=== PATIENT | male | born 1955 | race African-American/Black ===

== ENCOUNTER 2018-03-16 15:16 | Inpatient (IN) | payer OTHER ==
--- NOTE | 2018-03-16 16:08 | RAD REPORT ---
EXAM DESCRIPTION: CT - Head Brain Wo Cont - 03/16/2018 4:00 pm CLINICAL HISTORY: Declining state;Confused Drowsiness COMPARISON: No comparisons TECHNIQUE: All CT scans are performed using dose optimization technique as appropriate and may inclu de automated exposure control or mA/KV adjustment according to patient size. FINDINGS: No intracranial hemorrhage, hydrocephalus or extra-axial fluid collection.17 x 13 mm area of diminished density is present in the right basal ganglia, most compatible with subacute nonhemorrh agic CVA. No midline shift is seen. Chronic opacification of the right maxillary antrum is seen suggesting chronic sinusitis. The paranas al sinuses and mastoids are otherwise clear. The calvarium is intact. IMPRESSION: 17 x 13 mm subacute nonhemorrhagic infarct is noted in the right basal ganglia. No midli ne shift or other acute process identified.
--- NOTE | 2018-03-16 16:25 | RAD REPORT ---
EXAM DESCRIPTION: RAD - Chest Single View - 03/16/2018 4:19 pm CLINICAL HISTORY: COUGH Chest pain. COMPARISON: CHEST PA AND LAT 2 VIEW dated 10/04/2009 FINDINGS: Portable technique limits examination quality. The lungs are grossly clear. The heart is normal in size. No displaced fractures. IMPRESSION: No acute intrathoracic process suspected.
[2018-03-16 16:36] LABS: Urine Appearance CLEAR; Urine Bilirubin NEGATIVE (NEG); Urine Blood 2+ (NEG); Urine Color YELLOW; Urine Glucose NEGATIVE (NEG); Urine Protein NEGATIVE (NEG); Urine Specific Gravity 1.025 (1.005-1.030)
[2018-03-16 16:43] LABS: Barbiturates NEGATIVE (NEGATIVE); Benzodiazepines NEGATIVE (NEGATIVE); Cocaine NEGATIVE (NEGATIVE); METHAMPHETAM NEGATIVE (NEGATIVE); Methadone NEGATIVE (NEGATIVE); Opiates NEGATIVE (NEGATIVE); Phencyclidine NEGATIVE (NEGATIVE); Protime INR 1.22; THC Cannibis NEGATIVE (NEGATIVE)
[2018-03-16 16:46] LABS: Urine Microscopic Reflex ORDER UMIC
[2018-03-16] MEDS ORDERED: NA CHLORIDE 0.9% 1,000 ML ONE (16:46)
[2018-03-16 16:57] LABS: Urine Bacteria <20 /HPF (NONE SEEN); Urine RBC 20-50 /HPF (NONE SEEN)
[2018-03-16 16:58] LABS: Urine Culture Reflex Order NOT NEEDED; Urine Mucus 1+ /HPF (NONE SEEN)
[2018-03-16 16:59] LABS: Absolute Lymphocytes (CBC) 2.1 K/uL (0.7-4.9); Absolute Monocytes 0.9 K/uL (0.1-1.3); Absolute Neutrophil 5.8 K/uL (1.8-8.0); Basophils % 0.7 % (0-1.3); Eosinophils % 4.1 % (0-4.4); Hematocrit 48.2 % (39.6-49.0); Lymphocytes % 23.1 % (15.3-44.8); MCH 33.5 pg (27.0-35.0); MCV 97.1 fL (80-100); MPV 9.5 fL (7.6-11.3); Monocytes % 9.7 % (3.3-12.3); RBC Red Blood Cell Count 4.96 M/uL (4.33-5.43)
[2018-03-16 17:10] LABS: ALT/SGPT 20 U/L (12-78); AST/SGOT 16 U/L (15-37); Albumin 3.7 g/dL (3.4-5.0); Alkaline Phosphatase 109 U/L (45-117); BUN Blood Urea Nitrogen 14 mg/dL (7-18); Bicarbonate 27 mmol/L (21-32); Bilirubin Direct 0.1 mg/dL (0-0.2); Bilirubin Total 0.5 mg/dL (0.2-1.0); Glucose Level 90 mg/dL (74-106); Lipase 108 U/L (73-393); Magnesium 2.2 mg/dL (1.8-2.4); NT PRO-BNP 94 pg/mL (<125); Potassium 3.6 mmol/L (3.5-5.1); Protein, Total 7.5 g/dL (6.4-8.2); Sodium Level 139 mmol/L (136-145); Troponin (Emerg Dept Use Only) < 0.02 ng/mL (0.0-0.045)
--- NOTE | 2018-03-16 17:27 | ER ---
Nurse's Notes [facility] Name: Gutierrez Cai Sr Age: 62 yrs Sex: Male : 1955 Arrival Date: 03/16/2018 Time: 15:18 Bed 23 Private MD: Diagnosis: Cerebral infarction-righr basal ganglia, subacute Presentation: 03/16 15:18 Presenting complaint: Patient states: blurry vision since Friday. Pt's co-worker states aa5 "he's been really confused and unbalanced today at work". Denies pain, denies weakness. Pt currently A \\T\\ O x 4 in triage. Transition of care: patient was not received from another setting of care. Onset of symptoms was March 16, 2018. Risk Assessment: Do you want to hurt yourself or someone else? Patient reports no desire to harm self or others. Initial Sepsis Screen: Does the patient meet any 2 criteria? No. Patient's initial sepsis screen is negative. Does the patient have a suspected source of infection? No. Patient's initial sepsis screen is negative. Care prior to arrival: None. 15:18 Method Of Arrival: Ambulatory aa5 15:18 Acuity: JEANETTE 2 aa5 Historical: - Allergies: 15:26 No Known Allergies; aa5 - PMHx: 15:26 None; aa5 - PSHx: 15:26 Hernia repair; aa5 - Immunization history:: Adult Immunizations unknown. - Social history:: Smoking status: Patient uses tobacco products, smokes one-half pack cigarettes per day. - Ebola Screening: : No symptoms or risks identified at this time. - Family history:: not pertinent. Screenin:42 Abuse screen: Denies threats or abuse. Nutritional screening: No deficits noted. tl3 Tuberculosis screening: No symptoms or risk factors identified. Fall Risk None identified. 19:46 The patient has not been NPO before screening. The patient is alert, able to follow tl3 commands. The patient does not exhibit slurred or garbled speech The patient is not exhibiting difficulty speaking. The patient does not exhibit difficulty understanding words. The patient is able to swallow own secretions with no drooling or need for suction. Patient tolerated one teaspoon of water. No drooling, immediate coughing, gurgling, or clearing of the throat was noted. The patient tolerated 90mL of water. No drooling, immediate coughing, gurgling, or clearing of the throat was noted. The patient passed the bedside swallow screening. Oral medications may be given as ordered. Contact Physician for further diet orders. Assessment: 15:42 General: Appears in no apparent distress. comfortable, slender, well groomed, well tl3 developed, well nourished, Behavior is calm, cooperative, appropriate for age. Pain: Denies pain. Neuro: Level of Consciousness is awake, alert, obeys commands, Oriented to person, place, time, situation, Appropriate for age. Neuro: Reports co workers state that he is not himself today, reports cutting grass yesterday but drank lots of water. Cardiovascular: Patient's skin is warm and dry. Respiratory: Airway is patent Respiratory effort is even, unlabored, Respiratory pattern is regular, symmetrical. GI: No signs and/or symptoms were reported involving the gastrointestinal system. GI: last meal was lunch at 11:30am, ate breakfast this am. : No signs and/or symptoms were reported regarding the genitourinary system. EENT: No signs and/or symptoms were reported regarding the EENT system. Derm: No signs and/or symptoms reported regarding the dermatologic system. Musculoskeletal: No signs and/or symptoms reported regarding the musculoskeletal system. 15:42 General: blood glucose 80, orange juice offered. tl3 16:43 Reassessment: Patient appears in no apparent distress at this time. No changes from tl3 previously documented assessment. Patient and/or family updated on plan of care and expected duration. Pain level reassessed. Patient is alert, oriented x 3, equal unlabored respirations, skin warm/dry/pink. 19:34 Reassessment: pt in MRI. tl3 Vital Signs: 15:25 BP 130 / 93; Pulse 72; Resp 18 S; Temp 98.4(TE); Pulse Ox 98% on R/A; Weight 68.04 kg aa5 (R); Height 5 ft. 11 in. (180.34 cm) (R); Pain 0/10; 16:43 BP 130 / 79 Supine; Pulse 52; tl3 16:43 BP 138 / 90 Sitting; Pulse 64; tl3 16:43 BP 136 / 92 Standing; Pulse 75; tl3 17:17 BP 125 / 91; Pulse 61; Resp 18; Pulse Ox 60% ; tl3 20:00 BP 135 / 110; Pulse 58; Resp 18; Pulse Ox 99% on R/A; tl3 15:25 Body Mass Index 20.92 (68.04 kg, 180.34 cm) aa5 16:43 pt states he feels "woozy" with change in position tl3 16:43 pt states he got "woozy" again with standing tl3 NIH Stroke Scale Scores: 15:42 NIHSS Score: 0 tl3 ED Course: 15:18 Patient arrived in ED. aa5 15:24 Triage completed. aa5 15:24 Arm band placed on. aa5 15:27 Gilma Sage, RN is Primary Nurse. tl3 15:30 First set of blood cultures drawn by me, Second set of blood cultures drawn by me, tl3 Urine collected: clean catch specimen, clear, X-ray(s) taken. 15:41 Initial lab(s) drawn, by me, sent to lab. EKG done, by ED staff. Inserted saline lock: tl3 20 gauge in left forearm, using aseptic technique. Blood collected. 15:42 Patient has correct armband on for positive identification. Bed in low position. Call tl3 light in reach. Side rails up X 1. Adult w/ patient. residential monitor on. Pulse ox on. NIBP on. 15:42 No provider procedures requiring assistance completed. tl3 15:44 Jamaal Canales MD is Attending Physician. joey 15:56 CT Head Brain wo Cont Sent. tl3 15:59 CT Head Brain wo Cont In Process Unspecified. EDMS 16:20 XRAY Chest (1 view) In Process Unspecified. EDMS 17:14 ED physician to see patient. Dr Canales. tl3 17:26 Eddi Sauer DO is Hospitalizing Provider. joey 18:30 Patient moved to MRI via wheelchair. ka 19:28 MRI completed. Patient tolerated well. Patient moved back from MRI. ka 19:33 Patient admitted, IV remains in place. tl3 Administered Medications: 16:42 Drug: NS 0.9% 1000 ml Route: IV; Rate: 1 bolus; Site: left antecubital; Delivery: tl3 Primary tubing; 17:19 Follow up: IV Status: Completed infusion; IV Intake: 1000ml tl3 17:27 Drug: foLIC Acid 1 mg Route: IVPB; Site: left forearm; Delivery: Primary tubing; tl3 17:32 Follow up: IV Status: Completed infusion; IV Intake: 0.2ml tl3 17:28 Drug: Aspirin Chewable Tablet 324 mg Route: PO; tl3 20:01 Follow up: Response: No adverse reaction tl3 17:28 Drug: Pepcid 20 mg Route: IVP; Infused Over: 2 mins; Site: left forearm; tl3 17:41 Follow up: Response: No adverse reaction tl3 17:41 Follow up: Response: No adverse reaction tl3 17:41 Drug: Thiamine 100 mg Route: IV; Rate: bolus; Site: left forearm; Delivery: Primary tl3 tubing; 19:00 Follow up: IV Status: Completed infusion; IV Intake: 100ml tl3 20:01 Not Given (nurse Lizzie MUNGUIA upstairs to administer dose): Zocor 40 mg PO once tl3 Point of Care Testing: Blood Glucose: 15:41 Blood Glucose: 80 mg/dL; tl3 Ranges: Intake: 17:19 IV: 1000ml; Total: 1000ml. tl3 17:32 IV: 0ml; Total: 1000ml. tl3 19:00 IV: 100ml; Total: 1100ml. tl3 Outcome: 17:27 Decision to Hospitalize by Provider. joey 19:33 Admitted to Tele accompanied by tech, via wheelchair, with chart, Report called to millie Samuel RN 19:33 Condition: stable 19:33 Instructed on the need for admit. 20:02 Patient left the ED. tl3 NIH Stroke Scale - NIH Stroke Score Date: 03/16/2018 Time: 15:42 Total Score = 0 1a. Level of Consciousness (LOC) - 0(Alert) 1b. Level of Consciousness (LOC) (Year \\T\\ Age) - 0(Both) 1c. LOC Commands (Open \\T\\ Closes Eyes/Bibliographic Services Specialist) - 0(Both) 2. Best Gaze (Lateral Gaze Paresis) - 0(Normal) 3. Visual Field Loss - 0(No visual loss) 4. Facial Palsy - 0(Normal) 5a. Left Arm: Motor (10-second hold) - 0(No drift) 5b. Right Arm: Motor (10-second hold) - 0(No drift) 6a. Left Leg: Motor (5-second hold - always test supine) - 0(No drift) 6b. Right Leg: Motor (5-second hold - always test supine) - 0(No drift) 7. Limb Ataxia (finger/nose \\T\\ heel/henriquez - test with eyes open) - 0(Absent) 8. Sensory Loss (pinprick arms/legs/face) - 0(Normal) 9. Best Language: Aphasia (description/naming/reading) - 0(No aphasia) 10. Dysarthria (speech clarity - read or repeat words) - 0(Normal) 11. Extinction and Inattention (visual/tactile/auditory/spatial/personal) - 0(No abnormality) Initials: tl3 Signatures: Dispatcher [employer] EDJamaal Gutierrez MD MD cha Calderon, Audri, RN RN aa5 Glory Alexadner Tammy, RN RN tl3 Corrections: (The following items were deleted from the chart) 19:47 19:33 Admitted to Tele accompanied by tech, via wheelchair, with chart, tl3 tl3
[2018-03-16] MEDS ORDERED: ASPIRIN 81 MG CHEWABLE TABLET ONE (17:28)
[2018-03-16] MEDS ORDERED: FAMOTIDINE 20 MG/2 ML VIAL IV ONE (17:28)
--- NOTE | 2018-03-16 17:28 | EDPHYS ---
Physician Documentation [facility] Name: Gutierrez Cai Sr Age: 62 yrs Sex: Male : 1955 Arrival Date: 03/16/2018 Time: 15:18 Bed 23 Private MD: ED Physician Jamaal Canales HPI: 03/16 17:18 This 62 yrs old Black Male presents to ER via Ambulatory with complaints of Altered joey Mental Status. 17:18 The patient presents with decreased mental status, trouble concentrating. Onset: The joey symptoms/episode began/occurred today, around noon. Possible causes: unknown. Associated signs and symptoms: Pertinent positives: ataxia, blurred vision, confusion, dizziness, gait abnormality, lightheadedness. Patient's baseline: Neuro: alert and fully oriented. Historical: - Allergies: 15:26 No Known Allergies; aa5 - PMHx: 15:26 None; aa5 - PSHx: 15:26 Hernia repair; aa5 - Immunization history:: Adult Immunizations unknown. - Social history:: Smoking status: Patient uses tobacco products, smokes one-half pack cigarettes per day. - Ebola Screening: : No symptoms or risks identified at this time. - Family history:: not pertinent. ROS: 17:18 Constitutional: Negative for fever, chills, and weight loss, Eyes: Negative for injury, joey pain, redness, and discharge, ENT: Negative for injury, pain, and discharge, Neck: Negative for injury, pain, and swelling, Cardiovascular: Negative for chest pain, palpitations, and edema, Respiratory: Negative for shortness of breath, cough, wheezing, and pleuritic chest pain, Abdomen/GI: Negative for abdominal pain, nausea, vomiting, diarrhea, and constipation, Back: Negative for injury and pain, : Negative for injury, bleeding, discharge, and swelling, MS/Extremity: Negative for injury and deformity, Skin: Negative for injury, rash, and discoloration, Psych: Negative for depression, anxiety, suicide ideation, homicidal ideation, and hallucinations, Allergy/Immunology: Negative for hives, rash, and allergies, Endocrine: Negative for neck swelling, polydipsia, polyuria, polyphagia, and marked weight changes, Hematologic/Lymphatic: Negative for swollen nodes, abnormal bleeding, and unusual bruising. 17:18 Neuro: Positive for altered mental status, dizziness, gait disturbance, weakness. Exam: 17:18 Constitutional: This is a well developed, well nourished patient who is awake, alert, joey and in no acute distress. Head/Face: Normocephalic, atraumatic. Eyes: Pupils equal round and reactive to light, extra-ocular motions intact. Lids and lashes normal. Conjunctiva and sclera are non-icteric and not injected. Cornea within normal limits. Periorbital areas with no swelling, redness, or edema. ENT: Nares patent. No nasal discharge, no septal abnormalities noted. Tympanic membranes are normal and external auditory canals are clear. Oropharynx with no redness, swelling, or masses, exudates, or evidence of obstruction, uvula midline. Mucous membranes moist. Neck: Trachea midline, no thyromegaly or masses palpated, and no cervical lymphadenopathy. Supple, full range of motion without nuchal rigidity, or vertebral point tenderness. No Meningismus. Chest/axilla: Normal chest wall appearance and motion. Nontender with no deformity. No lesions are appreciated. Cardiovascular: Regular rate and rhythm with a normal S1 and S2. No gallops, murmurs, or rubs. Normal PMI, no JVD. No pulse deficits. Respiratory: Lungs have equal breath sounds bilaterally, clear to auscultation and percussion. No rales, rhonchi or wheezes noted. No increased work of breathing, no retractions or nasal flaring. Abdomen/GI: Soft, non-tender, with normal bowel sounds. No distension or tympany. No guarding or rebound. No evidence of tenderness throughout. Back: No spinal tenderness. No costovertebral tenderness. Full range of motion. Male : Normal genitalia with no discharge or lesions. Skin: Warm, dry with normal turgor. Normal color with no rashes, no lesions, and no evidence of cellulitis. MS/ Extremity: Pulses equal, no cyanosis. Neurovascular intact. Full, normal range of motion. Neuro: Awake and alert, GCS 15, oriented to person, place, time, and situation. Cranial nerves II-XII grossly intact. Motor strength 5/5 in all extremities. Sensory grossly intact. Cerebellar exam normal. Normal gait. Psych: Awake, alert, with orientation to person, place and time. Behavior, mood, and affect are within normal limits. 17:18 Musculoskeletal/extremity: DVT Exam: No signs of deep vein thrombosis. no pain, no swelling, no tenderness, negative Homans' sign noted on exam, no appreciated bluish discoloration, no erythema, no increased warmth. Vital Signs: 15:25 BP 130 / 93; Pulse 72; Resp 18 S; Temp 98.4(TE); Pulse Ox 98% on R/A; Weight 68.04 kg aa5 (R); Height 5 ft. 11 in. (180.34 cm) (R); Pain 0/10; 16:43 BP 130 / 79 Supine; Pulse 52; tl3 16:43 BP 138 / 90 Sitting; Pulse 64; tl3 16:43 BP 136 / 92 Standing; Pulse 75; tl3 17:17 BP 125 / 91; Pulse 61; Resp 18; Pulse Ox 60% ; tl3 20:00 BP 135 / 110; Pulse 58; Resp 18; Pulse Ox 99% on R/A; tl3 15:25 Body Mass Index 20.92 (68.04 kg, 180.34 cm) aa5 16:43 pt states he feels "woozy" with change in position tl3 16:43 pt states he got "woozy" again with standing tl3 NIH Stroke Scale Scores: 15:42 NIHSS Score: 0 tl3 MDM: 15:44 Patient medically screened. [facility] 17:20 Data reviewed: vital signs, nurses notes, lab test result(s), EKG, radiologic studies, [facility] CT scan, doppler, plain films. 03/16 15:48 Order name: Basic Metabolic Panel; Complete Time: 17:17 [facility] 03/16 15:48 Order name: CBC with Diff; Complete Time: 17:17 [facility] 03/16 15:48 Order name: LFT's; Complete Time: 17:17 [facility] 03/16 15:48 Order name: Magnesium; Complete Time: 17:17 [facility] 03/16 15:48 Order name: NT PRO-BNP; Complete Time: 17:17 [facility] 03/16 15:48 Order name: PT-INR; Complete Time: 17:17 [facility] 03/16 15:48 Order name: Troponin (emerg Dept Use Only); Complete Time: 17:17 [facility] 03/16 15:48 Order name: Lipase; Complete Time: 17:17 [facility] 03/16 15:48 Order name: Urine Culture [facility] 03/16 15:48 Order name: Urinalysis; Complete Time: 17:17 [facility] 03/16 15:48 Order name: UDS; Complete Time: 17:17 [facility] 03/16 15:48 Order name: Blood Culture Adult (2) [facility] 03/16 15:48 Order name: Asprin; Complete Time: 17:17 [facility] 03/16 15:48 Order name: Tylenol Level; Complete Time: 17:17 [facility] 03/16 15:48 Order name: XRAY Chest (1 view); Complete Time: 17:17 [facility] 03/16 15:48 Order name: CT Head Brain wo Cont; Complete Time: 17:17 [facility] 03/16 16:38 Order name: Urine Dipstick--Ancillary (enter results) 03/16 16:47 Order name: Urine Microscopic Only; Complete Time: 17:17 [facility] 03/16 17:17 Order name: US Carotid Artery Bilateral [facility] 03/16 17:25 Order name: Lipid Profile [facility] 03/16 17:25 Order name: Lipid Profile [facility] 03/16 17:35 Order name: Brain Wo Cont [facility] 03/16 18:37 Order name: US [facility] 03/16 18:43 Order name: T4 Free [facility] 03/16 18:43 Order name: Thyroid Stimulating Hormone [facility] 03/16 19:50 Order name: MRI [facility] 03/16 19:54 Order name: MRI [facility] 03/16 15:48 Order name: EKG; Complete Time: 15:49 [facility] 03/16 15:48 Order name: Cardiac monitoring; Complete Time: 15:55 [facility] 03/16 15:48 Order name: EKG - Nurse/Tech; Complete Time: 15:56 [facility] 03/16 15:48 Order name: IV Saline Lock; Complete Time: 15:56 [facility] 03/16 15:48 Order name: Labs collected and sent; Complete Time: 15:56 [facility] 03/16 15:48 Order name: O2 Per Protocol; Complete Time: 15:56 [facility] 03/16 15:48 Order name: O2 Sat Monitoring; Complete Time: 15:56 [facility] 03/16 17:32 Order name: CONS Physician Consult EDND Administered Medications: 16:42 Drug: NS 0.9% 1000 ml Route: IV; Rate: 1 bolus; Site: left antecubital; Delivery: tl3 Primary tubing; 17:19 Follow up: IV Status: Completed infusion; IV Intake: 1000ml tl3 17:27 Drug: foLIC Acid 1 mg Route: IVPB; Site: left forearm; Delivery: Primary tubing; tl3 17:32 Follow up: IV Status: Completed infusion; IV Intake: 0.2ml tl3 17:28 Drug: Aspirin Chewable Tablet 324 mg Route: PO; tl3 20:01 Follow up: Response: No adverse reaction tl3 17:28 Drug: Pepcid 20 mg Route: IVP; Infused Over: 2 mins; Site: left forearm; tl3 17:41 Follow up: Response: No adverse reaction tl3 17:41 Follow up: Response: No adverse reaction tl3 17:41 Drug: Thiamine 100 mg Route: IV; Rate: bolus; Site: left forearm; Delivery: Primary tl3 tubing; 19:00 Follow up: IV Status: Completed infusion; IV Intake: 100ml tl3 20:01 Not Given (nurse Lizzie MUNGUIA upstairs to administer dose): Zocor 40 mg PO once tl3 Point of Care Testing: Blood Glucose: 15:41 Blood Glucose: 80 mg/dL; tl3 Ranges: Critical Glucose Levels:Adult <50 mg/dl or >400 mg/dl <40 mg/dl or >180 mg/dl Disposition: 03/16/18 17:27 Hospitalization ordered by Eddi Sauer for Inpatient Admission. Preliminary diagnosis is Cerebral infarction - righr basal ganglia, subacute. - Bed requested for Telemetry/MedSurg (Inpatient). - Status is Inpatient Admission. tl3 - Condition is Fair. - Problem is new. - Symptoms have improved. UTI on Admission? No NIH Stroke Scale - NIH Stroke Score Date: 03/16/2018 Time: 15:42 Total Score = 0 1a. Level of Consciousness (LOC) - 0(Alert) 1b. Level of Consciousness (LOC) (Year \\T\\ Age) - 0(Both) 1c. LOC Commands (Open \\T\\ Closes Eyes/Cell Attendant Helper) - 0(Both) 2. Best Gaze (Lateral Gaze Paresis) - 0(Normal) 3. Visual Field Loss - 0(No visual loss) 4. Facial Palsy - 0(Normal) 5a. Left Arm: Motor (10-second hold) - 0(No drift) 5b. Right Arm: Motor (10-second hold) - 0(No drift) 6a. Left Leg: Motor (5-second hold - always test supine) - 0(No drift) 6b. Right Leg: Motor (5-second hold - always test supine) - 0(No drift) 7. Limb Ataxia (finger/nose \\T\\ heel/henriquez - test with eyes open) - 0(Absent) 8. Sensory Loss (pinprick arms/legs/face) - 0(Normal) 9. Best Language: Aphasia (description/naming/reading) - 0(No aphasia) 10. Dysarthria (speech clarity - read or repeat words) - 0(Normal) 11. Extinction and Inattention (visual/tactile/auditory/spatial/personal) - 0(No abnormality) Initials: tl3 Signatures: Dispatcher [employer] EDND Jamaal Canales MD MD cha Calderon, Audri, RN RN aa5 Hermelinda Keyes RN RN df Gilma Sage RN RN tl3 Corrections: (The following items were deleted from the chart) 17:35 17:18 MR STROKE PROTOCOL+MRI.RAD.BRZ ordered. [facility] 18:42 17:27 Hospitalization Ordered by Eddi Sauer DO for Inpatient Admission. df Preliminary diagnosis is Cerebral infarction - righr basal ganglia, subacute. Bed requested for Telemetry/MedSurg (Inpatient). Status is Inpatient Admission. Condition is Fair. Problem is new. Symptoms have improved. UTI on Admission? No. joey 20:02 18:42 03/16/2018 17:27 Hospitalization Ordered by Eddi Sauer DO for tl3 Inpatient Admission. Preliminary diagnosis is Cerebral infarction - righr basal ganglia, subacute. Bed requested for Telemetry/MedSurg (Inpatient). Status is Inpatient Admission. Condition is Fair. Problem is new. Symptoms have improved. UTI on Admission? No. df
[2018-03-16] MEDS ORDERED: FOLIC ACID 5 MG/ML VIAL ONE (17:30)
--- NOTE | 2018-03-16 17:40 | EKG ---
Test Date: 2018-03-16 Test Time: 15:40:18 De Ionizer Operator: MEASUREMENT RESULTS: Intervals: Rate: 58 IN: 148 QRSD: 92 QT: 438 QTc: 429 [place]: P: 59 IN: 148 QRS: 92 T: 34 INTERPRETIVE STATEMENTS: Sinus bradycardia with marked sinus arrhythmia Rightward axis Borderline ECG No previous ECG available for comparison Electronically Signed On 03-16-18 17:39:46 CDT by Aldo Adams
[2018-03-16] MEDS ORDERED: ACETAMINOPHEN 500 MG TAB PO PRN (17:41)
[2018-03-16] MEDS ORDERED: ONDANSETRON 4 MG/2 ML VIAL IV PRN (17:41)
[2018-03-16] MEDS ORDERED: THIAMINE 200 MG/2 ML INJ ONE (17:44)
[2018-03-16] MEDS ORDERED: NA CHLORIDE 0.9% 100 ML IV ONE (17:44)
[2018-03-16 18:04] LABS: Urine Blood 2+ (NEG); Urine Glucose NEGATIVE (NEG); Urine Protein NEGATIVE (NEG); Urine Specific Gravity 1.025 (1.005-1.030); Urine pH 5.5 (5.0-7.0)
--- NOTE | 2018-03-16 18:06 | P.HP ---
Certification for Inpatient Patient admitted to: Observation With expected LOS: <2 Midnights Patient will require the following post-hospital care: Other (Physical therapy versus inpatient rehab) Practitioner: I am a practitioner with admitting privileges, knowledge of patient current condition, hospital course, and medical plan of care. Services: Services provided to patient in accordance with Admission requirements found in Title 42 Section 412.3 of the Code of Federal Regulations Patient History Date of Service: 03/16/18 Primary Care Provider: None Reason for admission: Vision problems, unsteadiness with balance History of Present Illness: 62-year-old male presented to emergency room with vision problems and unsteadiness with his balance. Patient reported on Friday that he had some problems with his vision. He reported that his vision blacked out. He also felt some weakness and dizziness. He do not come to the ER at that time as his vision improved. Then today his coworkers noted some difficulty with his balance. His coworkers also noted some changes in his demeanor. His coworkers had mentioned that he was not acting himself. Some confusion was noted. His coworkers sent into the emergency room for evaluation. In the ER patient evaluated. CBC BMP unremarkable. Troponin unremarkable. Urine drug screen unremarkable. Urinalysis unremarkable. Chest x-ray unremarkable. 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 No midline shift was identified. The patient was admitted for further evaluation. When I saw the patient ER, he appeared appropriate. No chest pain, shortness of breath noted. Patient does not take any medication. He has no history of medical problems. He does smoke about a half a pack a day. Home medications list reviewed: Yes - Past Medical/Surgical History Diabetic: No Past Medical History: Patient denies medical history -: Tobacco abuse -: Hernia repair Psychosocial/ Personal History: Patient is . He has 3 children. 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 - Family History Family History: Reviewed- Non-Contributory - Social History Smoking Status: Light Tobacco smoker (1-9 cigarettes/day) Counseled patient to stop smoking for: less than 10 minutes Smoking therapy provided: Yes Patient receptive to therapy: Yes Alcohol use: No CD- Drugs: No Caffeine use: Yes Place of Residence: Home Review of Systems General: Weakness, As per HPI Eyes: Vision Change, As per HPI ENT: Unremarkable Respiratory: Unremarkable Cardiovascular: As per HPI Gastrointestinal: Unremarkable Genitourinary: Unremarkable Musculoskeletal: Unremarkable Integumentary: Unremarkable Neurological: Weakness, Incoordination, Confusion, As per HPI Lymphatics: Unremarkable Physical Examination - Physical Exam General: Alert, In no apparent distress, Oriented x3, Cooperative HEENT: Atraumatic, Normocephalic, Mucous membr. moist/pink Neck: Supple, No Thyromegaly Respiratory: Clear to auscultation bilaterally, Normal air movement Cardiovascular: Normal pulses, Regular rate/rhythm Gastrointestinal: Normal bowel sounds, Soft and benign, Non-distended, No tenderness, No masses, No rebound, No guarding Musculoskeletal: No erythema, No tenderness, No warmth Integumentary: No tenderness/swelling, No erythema, No warmth, No cyanosis Neurological: Normal speech, Normal strength at 5/5 x4 extr, Normal tone, Normal reflexes 2+ - Studies Laboratory Data (last 24 hrs) 03/16/18 15:40: PT 14.4 H, INR 1.22 03/16/18 15:40: WBC 9.3, Hgb 16.6, Hct 48.2, Plt Count 166 03/16/18 15:40: Sodium 139, Potassium 3.6, BUN 14, Creatinine 1.10, Glucose 90, Magnesium 2.2, Total Bilirubin 0.5, AST 16, ALT 20, Alkaline Phosphatase 109, Lipase 108 Assessment and Plan - Plan Impression: Vision loss with recovery, confusion, difficulty with balance secondary to 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 Will monitor the patient closely. Will start aspirin 81 mg daily, Lipitor 80 mg daily. Will check echocardiogram, carotid Doppler and stroke protocol MRI. Will have physical therapy and occupational therapy assess patient. Neurology will evaluate patient. Await further recommendations from neurology and physical therapy. Will evaluate his swallowing. We will advance diet as tolerated. Will reassess tomorrow. Patient may require physical therapy at discharge as an outpatient versus inpatient rehab. Will hold off on blood pressure medication at this time. Will reassess tomorrow. Tobacco abuse: Patient may require nicotine patch. Tobacco cessation education will be provided. Discharge Plan: Other (Home versus inpatient rehab) Plan to discharge in: 48 Hours - Advance Directives Does patient have a Living Will: No Does patient have a Durable POA for Healthcare: No - Code Status/Comfort Care Code Status Assessed: Yes (Patient full code) Time Spent Managing Pts Care (In Minutes): 55
--- NOTE | 2018-03-16 18:36 | RAD REPORT ---
EXAM DESCRIPTION: US - CP - 03/16/2018 6:13 pm CLINICAL HISTORY: Syncope, stroke-like symptoms COMPARISON: None. TECHNIQUE: Real-time sonographic evaluation of both carotid systems was performed. Castro scale and Do ppler interrogation were performed with waveform tracing bilaterally. FINDINGS: Normal high resistance waveforms are noted in both external carotid arteries. The common c arotid arteries and internal carotid arteries show normal low resistance waveforms. No significant plaque formation is seen. Peak systolic and end diastolic velocity values and the ICA/ CCA ratios are in the non-hemodynamically significant range. Antegrade flow seen in both vertebral arteries. Velocity values and ratios were recorded and are retained in the patient's imaging records. IMPRESSION: No significant atherosclerotic changes noted. No evidence of a hemodynamically significant stenosis.
[2018-03-16 18:43] LABS: Thyroid Stimulating Hormone 1.22 uIU/mL (0.360-3.740)
--- NOTE | 2018-03-16 19:50 | RAD REPORT ---
EXAM DESCRIPTION: MRI - MRA Head Wo Cont - 03/16/2018 7:29 pm CLINICAL HISTORY: Subacute CVA COMPARISON: None. TECHNIQUE: Axial and coronal 3D [id number] image acquisition was performed. 3D rotational images were generated with source and reconstruction images reviewed. FINDINGS: Major venous sinuses are patent. No aneurysm or vascular malformation. No significant atherosclerotic changes. No basilar stenosis. Pa tient has normal variant large bilateral posterior communicating artery mass as the primary source fo r posterior cerebral distribution. IMPRESSION: MRA head examination shows no significant intracranial finding.
--- NOTE | 2018-03-16 19:53 | RAD REPORT ---
EXAM DESCRIPTION: MRI - Brain W/Wo Cont - 03/16/2018 7:29 pm CLINICAL HISTORY: Subacute CVA COMPARISON: CT head March 16 TECHNIQUE: Sagittal and axial T1-weighted images were obtained. Axial PD/heavily T2-weighted and T2- FLAIR images were obtained along with axial DWI/ADC mapping sequences. Coronal heavily T2 weighted s equence obtained. Axial and coronal post-contrast T1-weighted images were also obtained. A ml Multi savanna contrast following utilized. FINDINGS: No intracranial hemorrhage. An approximately 17 millimeter area of hyperintense signal on diffusion-weighted imaging in the right basal ganglia and posterior limb internal capsule. This has a corresponding diminished signal on ADC mapping. This is an acute to subacute infarction and matches the CT finding. No other area of acute or subacute infarction. Scattered chronic ischemic changes are present. Atrophy is present with ventricular size in proportion. Post-contrast images show normal enhancement. No dural thickening. Mastoid air cells and paranasal sinuses are clear. IMPRESSION: Acute- subacute nonhemorrhagic infarction right basal ganglia and posterior limb interna l capsule. Atrophy and scattered chronic ischemic changes throughout the cerebral hemispheres. Ventricles are in proportion.
--- NOTE | 2018-03-16 20:39 | RAD REPORT ---
EXAM DESCRIPTION: MRI - MRA Neck W/Wo Cont - 03/16/2018 7:28 pm CLINICAL HISTORY: CVA COMPARISON: CT head same date, MRI brain MRA head same date TECHNIQUE: Axial and coronal 3D [id number] image acquisition was performed. 3D rotational images were generated with source and reconstruction images reviewed. FINDINGS: Aortic arch is 3 vessel. Is approximately 40% stenosis of the left common carotid artery 2 cm from the origin. Right vertebral artery is dominant. Left vertebral artery is quite small. There are atherosclerotic changes evident. Multiple focal stenoses are seen. No basilar artery stenosis. Th e common carotid and bilateral internal carotid artery show no significant disease. IMPRESSION: No significant abnormality of the carotid vasculature. Dominant right vertebral artery with no significant finding. Left vertebral artery is quite small and shows multiple focal stenoses. The stenoses are potentially artifact due to the small size rather than focal atherosclerotic change. Vertebral dissection is not suspected.
[2018-03-16] MEDS ORDERED: ATORVASTATIN 80 MG TAB PO SCH (21:00)
[2018-03-16] MEDS: ENOXAPARIN 40 MG/0.4 ML SQ SCH (22:15)
[2018-03-16] MEDS: NA CHLORIDE 0.9% 1,000 ML IV SCH (22:15)
[2018-03-17 04:46] LABS: Absolute Lymphocytes (CBC) 2.2 K/uL (0.7-4.9); Absolute Monocytes 0.9 K/uL (0.1-1.3); Absolute Neutrophil 5.2 K/uL (1.8-8.0); Basophils % 0.8 % (0-1.3); Eosinophils % 3.4 % (0-4.4); Hematocrit 45.8 % (39.6-49.0); Lymphocytes % 25.4 % (15.3-44.8); MCH 33.7 pg (27.0-35.0); MCV 97.1 fL (80-100); Monocytes % 10.7 % (3.3-12.3); RBC Red Blood Cell Count 4.72 M/uL (4.33-5.43)
[2018-03-17 04:55] LABS: BUN Blood Urea Nitrogen 10 mg/dL (7-18); Bicarbonate 25 mmol/L (21-32); Glucose Level 72 mg/dL (74-106); HDL Cholesterol 40 mg/dL (40-60); LDL Cholesterol, Calculated 100 (<130); Magnesium 2.1 mg/dL (1.8-2.4); Potassium 3.5 mmol/L (3.5-5.1); Sodium Level 142 mmol/L (136-145)
[2018-03-17] MEDS: NA CHLORIDE 0.9% 1,000 ML IV SCH (04:57)
[2018-03-17] MEDS ORDERED: PANTOPRAZOLE 40MG TABLET PO SCH (07:30)
[2018-03-17] MEDS ORDERED: INFLUENZA VACCINE (for 3y+) 0.5 ML DOSE IMVAC ONE (08:00)
[2018-03-17] MEDS: ENOXAPARIN 40 MG/0.4 ML SQ SCH (08:28)
[2018-03-17] MEDS ORDERED: FOLIC ACID 1 MG TABLET PO SCH (09:00)
[2018-03-17] MEDS ORDERED: ASPIRIN EC 81 MG TAB PO SCH (09:00)
--- NOTE | 2018-03-17 13:24 | P.PN ---
Subjective Date of Service: 03/17/18 Primary Care Provider: None Chief Complaint: Vision problems, unsteadiness with balance Subjective: Improving Physical Examination - Vital Signs Temperature: 97.0 F Blood Pressure: 117/77 Pulse: 54 Respirations: 18 Pulse Ox (%): 99 - Physical Exam General: Alert, In no apparent distress, Oriented x3, Cooperative HEENT: Atraumatic Neck: Supple Respiratory: Clear to auscultation bilaterally, Normal air movement Cardiovascular: Normal pulses, Regular rate/rhythm Gastrointestinal: Normal bowel sounds, Soft and benign, Non-distended, No tenderness, No masses, No rebound, No guarding Musculoskeletal: No erythema, No tenderness, No warmth Integumentary: No tenderness/swelling, No erythema, No warmth, No cyanosis Neurological: Normal speech, Normal strength at 5/5 x4 extr, Normal tone, Normal affect - Studies Laboratory Data (last 24 hrs) 03/16/18 15:40: Triglycerides 115, Cholesterol 171, HDL Cholesterol 44, Cholesterol/HDL Ratio 3.89 03/16/18 15:40: PT 14.4 H, INR 1.22 03/16/18 15:40: WBC 9.3, Hgb 16.6, Hct 48.2, Plt Count 166 03/16/18 15:40: Sodium 139, Potassium 3.6, BUN 14, Creatinine 1.10, Glucose 90, Magnesium 2.2, Total Bilirubin 0.5, AST 16, ALT 20, Alkaline Phosphatase 109, Lipase 108 Medications List Reviewed: Yes Assessment & Plan Discharge Plan: Other (Inpatient rehab verses home with home health and physical therapy) Plan to discharge in: 24 Hours Physician Review Additional Text: Impression: Vision loss with recovery, confusion, difficulty with balance secondary to 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 No complaints noted. Patient continues with aspirin 81 mg daily, Lipitor 80 mg daily and DVT prophylaxis. MRI reviewed and shows acute-subacute nonhemorrhagic infarction to the right basal ganglia and posterior limb internal capsule. Will have physical therapy assess ambulation. Will check to see if the patient will qualify for inpatient rehab versus home with home health and physical therapy. Will discuss case further with Neurology. Tobacco abuse: Patient may require nicotine patch. Tobacco cessation education will be provided. Time Spent Managing Pts Care (In Minutes): 55
--- NOTE | 2018-03-17 15:15 | P.DS ---
Admission Date: 03/16/18 Discharge Date: 03/17/18 Primary Care Provider: None Disposition: ROUTINE DISCHARGE Discharge Condition: GOOD Reason for Admission: Vision problems, unsteadiness with balance Procedures: Brain MRI: COMPARISON: CT head March 16 TECHNIQUE: Sagittal and axial T1-weighted images were obtained. Axial PD/ heavily T2-weighted and T2-FLAIR images were obtained along with axial DWI/ADC mapping sequences. Coronal heavily T2 weighted sequence obtained. Axial and coronal post-contrast T1-weighted images were also obtained. A ml Multihance contrast following utilized. FINDINGS: No intracranial hemorrhage. An approximately 17 millimeter area of hyperintense signal on diffusion-weighted imaging in the right basal ganglia and posterior limb internal capsule. This has a corresponding diminished signal on ADC mapping. This is an acute to subacute infarction and matches the CT finding. No other area of acute or subacute infarction. Scattered chronic ischemic changes are present. Atrophy is present with ventricular size in proportion. Post-contrast images show normal enhancement. No dural thickening. Mastoid air cells and paranasal sinuses are clear. IMPRESSION: Acute- subacute nonhemorrhagic infarction right basal ganglia and posterior limb internal capsule. Atrophy and scattered chronic ischemic changes throughout the cerebral hemispheres. Ventricles are in proportion. Brain MRA: FINDINGS: Major venous sinuses are patent. No aneurysm or vascular malformation. No significant atherosclerotic changes. No basilar stenosis. Patient has normal variant large bilateral posterior communicating artery mass as the primary source for posterior cerebral distribution. IMPRESSION: MRA head examination shows no significant intracranial finding. Neck MRA: COMPARISON: CT head same date, MRI brain MRA head same date TECHNIQUE: Axial and coronal 3D [id number] image acquisition was performed. 3D rotational images were generated with source and reconstruction images reviewed. FINDINGS: Aortic arch is 3 vessel. Is approximately 40% stenosis of the left common carotid artery 2 cm from the origin. Right vertebral artery is dominant. Left vertebral artery is quite small. There are atherosclerotic changes evident. Multiple focal stenoses are seen. No basilar artery stenosis. The common carotid and bilateral internal carotid artery show no significant disease. IMPRESSION: No significant abnormality of the carotid vasculature. Dominant right vertebral artery with no significant finding. Left vertebral artery is quite small and shows multiple focal stenoses. The stenoses are potentially artifact due to the small size rather than focal atherosclerotic change. Vertebral dissection is not suspected. Carotid doppler: COMPARISON: None. TECHNIQUE: Real-time sonographic evaluation of both carotid systems was performed. Castro scale and Doppler interrogation were performed with waveform tracing bilaterally. FINDINGS: Normal high resistance waveforms are noted in both external carotid arteries. The common carotid arteries and internal carotid arteries show normal low resistance waveforms. No significant plaque formation is seen. Peak systolic and end diastolic velocity values and the ICA/CCA ratios are in the non-hemodynamically significant range. Antegrade flow seen in both vertebral arteries. Velocity values and ratios were recorded and are retained in the patient's imaging records. IMPRESSION: No significant atherosclerotic changes noted. No evidence of a hemodynamically significant stenosis. Chest x-ray: COMPARISON: CHEST PA AND LAT 2 VIEW dated 10/04/2009 FINDINGS: Portable technique limits examination quality. The lungs are grossly clear. The heart is normal in size. No displaced fractures. IMPRESSION: No acute intrathoracic process suspected. Medical problem list: Vision loss with recovery, confusion, difficulty with balance secondary to 17 x 13 mm acute-subacute nonhemorrhagic CVA to the right basal ganglia and posterior limb internal capsule Hyperlipidemia Tobacco abuse Brief History of Present Illness: 62-year-old male presented to emergency room with vision problems and unsteadiness with his balance. Patient reported on Friday that he had some problems with his vision. He reported that his vision blacked out. He also felt some weakness and dizziness. He do not come to the ER at that time as his vision improved. Then today his coworkers noted some difficulty with his balance. His coworkers also noted some changes in his demeanor. His coworkers had mentioned that he was not acting himself. Some confusion was noted. His coworkers sent into the emergency room for evaluation. In the ER patient evaluated. CBC BMP unremarkable. Troponin unremarkable. Urine drug screen unremarkable. Urinalysis unremarkable. Chest x-ray unremarkable. 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 No midline shift was identified. The patient was admitted for further evaluation. When I saw the patient ER, he appeared appropriate. No chest pain, shortness of breath noted. Patient does not take any medication. He has no history of medical problems. He does smoke about a half a pack a day. Hospital Course: Patient presented to the ER with vision loss with recovery, confusion and difficulty with balance. Patient recovered well. MRI revealed acute-subacute nonhemorrhagic CVA to the right basal ganglia and posterior limb internal capsule. Patient was evaluated by physical therapy. Patient did well. He had good strength throughout. He was able to ambulate sufficiently including stairs. Case discussed at length with Neurology. Patient does not qualify for inpatient rehab. Blood pressure remained stable. No need for medication. At discharge patient will continue with aspirin 81 mg daily, folic acid 1 mg daily and Lipitor 80 mg daily. Patient will follow up with neurology in 1-2 weeks to follow up this hospitalization. Patient will need to see Neurology for clearance to go back to work. Patient has hyperlipidemia. LDL elevated. At discharge patient will continue with Lipitor 80 mg daily. Patient with tobacco abuse. Tobacco cessation addressed in detail. Cessation will be important in the future due to CVA. Vital Signs/Physical Exam: Temp Pulse Resp BP Pulse Ox 97.0 F 54 18 117/77 99 03/17/18 13:24 03/17/18 13:24 03/17/18 13:24 03/17/18 13:24 03/17/18 13:24 General: Alert, In no apparent distress, Oriented x3, Cooperative HEENT: Atraumatic, Mucous membr. moist/pink Neck: Supple Respiratory: Clear to auscultation bilaterally, Normal air movement Cardiovascular: Normal pulses, Regular rate/rhythm Gastrointestinal: Normal bowel sounds, Soft and benign, Non-distended, No tenderness, No masses, No rebound, No guarding Musculoskeletal: No erythema, No tenderness, No warmth Integumentary: No tenderness/swelling, No erythema, No warmth, No cyanosis Neurological: Normal speech, Normal strength at 5/5 x4 extr, Normal tone, Normal affect Laboratory Data at Discharge: WBC 8.7 K/uL (4.3-10.9) 03/17/18 04:07 Hgb 15.9 g/dL (13.6-17.9) 03/17/18 04:07 Hct 45.8 % (39.6-49.0) 03/17/18 04:07 Plt Count 153 K/uL (152-406) 03/17/18 04:07 PT 14.4 SECONDS (9.5-12.5) H 03/16/18 15:40 INR 1.22 03/16/18 15:40 Sodium 142 mmol/L (136-145) 03/17/18 04:07 Potassium 3.5 mmol/L (3.5-5.1) 03/17/18 04:07 BUN 10 mg/dL (7-18) 03/17/18 04:07 Creatinine 1.00 mg/dL (0.55-1.3) 03/17/18 04:07 Glucose 72 mg/dL (74-106) L 03/17/18 04:07 Magnesium 2.1 mg/dL (1.8-2.4) 03/17/18 04:07 Total Bilirubin 0.5 mg/dL (0.2-1.0) 03/16/18 15:40 AST 16 U/L (15-37) 03/16/18 15:40 ALT 20 U/L (12-78) 03/16/18 15:40 Alkaline Phosphatase 109 U/L (45-117) 03/16/18 15:40 Triglycerides 65 mg/dL (<150) 03/17/18 04:07 Cholesterol 153 mg/dL (<200) 03/17/18 04:07 HDL Cholesterol 40 mg/dL (40-60) 03/17/18 04:07 Cholesterol/HDL Ratio 3.83 03/17/18 04:07 Lipase 108 U/L (73-393) 03/16/18 15:40 Home Medications: Aspirin [Aspirin EC 81 MG] 81 mg PO DAILY #90 tablet. 03/17/18 Atorvastatin Calcium [Lipitor] 80 mg PO BEDTIME #30 tab 03/17/18 Folic Acid 1 mg PO DAILY #90 tablet 03/17/18 New Medications: Aspirin [Aspirin EC 81 MG] 81 mg PO DAILY #90 tablet. Atorvastatin Calcium [Lipitor] 80 mg PO BEDTIME #30 tab Folic Acid 1 mg PO DAILY #90 tablet Patient Discharge Instructions: 1. Patient will need to establish care with a PCP to follow up this hositalization. 2. Patient presented to the ER with vision loss with recovery, confusion and difficulty with balance. Patient recovered well. MRI revealed acute-subacute nonhemorrhagic CVA to the right basal ganglia and posterior limb internal capsule. Patient was evaluated by physical therapy. Patient did well. He had good strength throughout. He was able to ambulate sufficiently including stairs. Case discussed at length with Neurology. Patient does not qualify for inpatient rehab. Blood pressure remained stable. No need for medication. At discharge patient will continue with aspirin 81 mg daily, folic acid 1 mg daily and Lipitor 80 mg daily. Patient will follow up with neurology in 1-2 weeks to follow up this hospitalization. Patient will need to see Neurology for clearance to go back to work. 3. Patient has hyperlipidemia. LDL elevated. At discharge patient will continue with Lipitor 80 mg daily. 4. Patient with tobacco abuse. Tobacco cessation addressed in detail. Cessation will be important in the future due to CVA. Diet: AHA Activity: Fall precautions Followup: Joshua Saldivar MD [ASSOCIATE-ACTIVE - CAN ADMIT] - Time spent managing pt's care (in minutes): 55
--- NOTE | 2018-03-17 17:16 | ECHO ---
HEIGHT: 5 ft 11 in WEIGHT: 146 lb 8 oz DATE OF STUDY: 03/17/[address]: Eddi Sauer DO 2-DIMENSIONAL: YES M.MODE: YES DOPPLER: YES COLOR FLOW: YES TDS: PORTABLE: DEFINITY: BUBBLE STUDY: DIAGNOSIS: CEREBRAL VASCULAR ACCIDENT CARDIAC HISTORY: CATHERIZATION: NO SURGERY: NO PROSTHETIC VALVE: NO PACEMAKER: NO MEASUREMENTS (cm) DIASTOLIC (NORMALS) SYSTOLIC (NORMALS) IVSd 0.9 (0.6-1.2) LA Diam 3.6 (1.9-4.0) LVEF 40-45% LVIDd 4.7 (3.5-5.7) LVIDs 3.9 (2.0-3.5) %FS 17% LVPWd 0.9 (0.6-1.2) Ao Diam 3.4 (2.0-3.7) 2 DIMENSIONAL ASSESSMENT: RIGHT ATRIUM: NORMAL LEFT ATRIUM: NORMAL RIGHT VENTRICLE: NORMAL LEFT VENTRICLE: NORMAL TRICUSPID VALVE: NORMAL MITRAL VALVE: NORMAL PULMONIC VALVE: NORMAL AORTIC VALVE: NORMAL PERICARDIAL EFFUSION: NONE AORTIC ROOT: NORMAL LEFT VENTRICULAR WALL MOTION: MILD GLOBAL HYPOKINESIS. DOPPLER/COLOR FLOW: MILD MITRAL REGURGITATION AND TRICUSPID REGURGITATION. ESTIMATED RIGHT VENTRICULAR SYSTOLIC PRESSURE 38 mmHg. MILD PULMONARY HYPERTENSION. COMMENTS: MILDLY DEPRESSED LEFT VENTRICULAR EJECTION FRACTION. MILD MITRAL REGURGITATION AND TRICUSPID REGURGITATION. MILD PULMONARY HYPERTENSION. TECHNOLOGIST: AMANDA RODAS
== END 2018-03-17 17:03 | disposition home or self-care (01) | DRG 66 ==
LOC: ER 15:16 → ERHOLD 17:29 → 4TH 19:48
PROVIDERS: ADMIT Family Medicine; ATTEND Family Medicine
DX: I63.9 Cerebral infarction, unspecified (principal); F17.210 Nicotine dependence, cigarettes, uncomplicated; E78.5 Hyperlipidemia, unspecified
CPT/HCPCS: 36415; 70450; 70544; 70549; 70553; 71045; 80048; 80061; 80076; 80307; 80329; 81003; 81015; 82962; 83690; 83735; 83880; 84439; 84443; 84484; 85025; 85610; 87040; 87086; 87088; 93005; 93306; 93880; 96361; 96365; 96375; 97163; 99285; A9577; G0008; J1650; J3411; J7030; Q2035

== ENCOUNTER 2018-07-15 07:08 | Day surgery (SDC) | payer OTHER ==
--- OUTSIDE RECORDS SUMMARY | 2018-07-15 07:10 | XMS REPORT ---
:1955 Author Organization [employer] Care Team Providers Name Role Phone Manolo Singh Provider Role Unavailable Allergies, Adverse Reactions, Alerts Substance Reaction Event Type N.K.D.A. Info Not Available Non Drug Allergy Problems Problem Type Condition Code Onset Dates Condition Status Assessment Encounter for screening for lung Z12.2 Active cancer Assessment Tobacco use disorder, continuous F17.209 Active Assessment Screening for colon cancer Z12.11 Active Assessment Need for pneumococcal vaccination Z23 Active Assessment Need for Tdap vaccination Z23 Active Assessment Mixed hyperlipidemia E78.2 Active Problem Folate deficiency E53.8 Active Problem Tobacco use disorder, continuous F17.209 Active Problem Mixed hyperlipidemia E78.2 Active Assessment Well adult on routine health check Z00.00 Active Assessment Encounter for screening for other Z11.59 Active viral diseases Problem Non-hemorrhagic cerebrovascular I63.9 Active accident (CVA) Medications Medication Code Code Instructions Start End Status Dosage System Date Date Folic Acid [facility] 25310717815 1 MG Orally Once Active 1 tablet a day Atorvastatin [facility] 33675211313 80 MG Orally Active 1 tablet Calcium Once a day Aspir-81 [facility] [id number] 81 MG Orally Active 1 tablet Once a day Results No Known Results Immunizations Vaccine Administration Date TDAP > 7 Years-Adacel Jun 30, 2018 [email or web address] Jun 30, 2018 Summary Purpose [employer] Submission
[2018-07-15] MEDS ORDERED: Ringers Lactate 1,000 ML IV ONE (07:34)
[2018-07-15] MEDS ORDERED: PROPOFOL 200 MG/20 ML VIAL IV ONE (08:42)
[2018-07-15] MEDS ORDERED: LIDOCAINE 1% MPF 5 ML VIAL ONE (08:42)
--- NOTE | 2018-07-15 09:15 | ENDO RPT ---
[address], [address] COLONOSCOPY PROCEDURE REPORT EXAM DATE: 07/15/2018 PATIENT NAME: Gutierrez Cai MR #: [id number] BIRTHDATE: 1955 ATTENDING: Philipp Alvarez DR STATUS: outpatient NURSING PROGRAM CHAIR: Janelle Jimenez RN, Jojo Fuller, Mary Diana RN, and Benjamin Garcia [place]ny INDICATIONS: The patient is a 62 yr old Male here for a colonoscopy due to colon cancer screening PROCEDURE PERFORMED: Colonoscopy with snare polypectomy MEDICATIONS: Per Anesthesia. ESTIMATED BLOOD LOSS: None CONSENT: The patient understands the risks and benefits of the procedure and understands that these risks include, but are not limited to: sedation, allergic reaction, infection, perforation and/or bleeding. Alternative means of evaluation and treatment include, among others: physical exam, x-rays, and/or surgical intervention. The patient elects to proceed with this endoscopic procedure. DESCRIPTION OF PROCEDURE: During intra-op preparation period all mechanical medical equipment was checked for proper function. Hand hygiene and appropriate measures for infection prevention was taken. Procedure, possible complications, alternatives including, but not limited to possibility of bleeding, perforation, tear, infection, sepsis, need for surgery, need for blood transfusion, were explained to the patient. After the risks, benefits and alternatives of the procedure were thoroughly explained, Informed consent was verified, confirmed and timeout was successfully executed by the treatment team. The patient was placed in the left lateral position. A digital rectal exam was performed and revealed no abnormalities of the rectum. After appropriate level of anesthesia, the scope was passed. The EC-[id number] ([id number]) endoscope was introduced through the anus and advanced to the cecum, which was identified by both the appendix and ileocecal valve. The quality of the prep was fair. The instrument was then slowly withdrawn as the colon was fully examined. Scope withdrawal time was 9 minutes. COLON FINDINGS: A small smooth and polypoid shaped pedunculated polyp was found at the cecum. A polypectomy was performed with a cold snare and with jumbo cold forceps. The resection was complete, the polyp tissue was completely retrieved and sent to histology. Retroflexed views revealed no abnormalities. The scope was then completely withdrawn from the patient and the procedure terminated. ADVERSE EVENTS: There were no complications. IMPRESSIONS: Small pedunculated polyp was found at the cecum; polypectomy was performed in a piecemeal fashion with a cold snare and with jumbo cold forceps RECOMMENDATIONS: 1. await biopsy results 2. avoid NSAIDS for 2 weeks 3. fiber rich diet RECALL: Return in 5 year(s) for Colonoscopy, pending biopsy results. Pending Biopsy Results Philipp Alvarze DR eSigned: Philipp Alvarez DR 07/15/2018 9:04 AM cc: CPT CODES: ICD9 CODES: PATIENT NAME: Gutierrez Cai MR#: [id number]
== END 2018-07-15 09:39 | disposition home or self-care (01) ==
LOC: OR 07:08
PROVIDERS: ATTEND Surgery
PROC: 0DBH8ZX Excision of Cecum, Via Natural or Artificial Opening Endoscopic, Diagnostic (ICD-10-PCS; principal; 2018-07-15 09:15)
DX: Z12.11 Encounter for screening for malignant neoplasm of colon (principal); D12.0 Benign neoplasm of cecum; E78.2 Mixed hyperlipidemia; F17.200 Nicotine dependence, unspecified, uncomplicated; Z80.3 Family history of malignant neoplasm of breast; Z80.41 Family history of malignant neoplasm of ovary; Z83.3 Family history of diabetes mellitus; Z82.3 Family history of stroke; Z82.49 Family history of ischemic heart disease and other diseases of the circulatory system
CPT/HCPCS: 88305; J2704

== ENCOUNTER 2018-10-27 07:04 | Day surgery (SDC) | payer OTHER ==
[2018-10-22 13:46] LABS: Urine Appearance CLEAR; Urine Bilirubin NEGATIVE (NEG); Urine Blood 3+ (NEG); Urine Color YELLOW; Urine Glucose NEGATIVE (NEG); Urine Protein NEGATIVE (NEG); Urine Urobilinogen 0.2 mg/dL (0.2-1.0)
[2018-10-22 13:52] LABS: Urine Microscopic Reflex ORDER UMIC
[2018-10-22 14:11] LABS: Urine Bacteria <20 /HPF (NONE SEEN); Urine RBC <5 /HPF (NONE SEEN)
[2018-10-22 14:19] LABS: Urine Culture Reflex Order NOT NEEDED
[2018-10-22 14:23] LABS: Protime INR 1.12
[2018-10-22 14:32] LABS: Absolute Monocytes 0.8 K/uL (0.1-1.3); Absolute Neutrophil 6.1 K/uL (1.8-8.0); Basophils % 0.5 % (0-1.3); Eosinophils % 3.8 % (0-4.4); Hematocrit 50.6 % (39.6-49.0); Lymphocytes % 21.6 % (15.3-44.8); MPV 8.9 fL (7.6-11.3); Monocytes % 8.8 % (3.3-12.3); RBC Red Blood Cell Count 5.12 M/uL (4.33-5.43)
[2018-10-22 14:51] LABS: Albumin 4.1 g/dL (3.4-5.0); Bilirubin Total 0.5 mg/dL (0.2-1.0); Potassium 3.9 mmol/L (3.5-5.1); Protein, Total 8.1 g/dL (6.4-8.2)
--- OUTSIDE RECORDS SUMMARY | 2018-10-27 07:16 | XMS REPORT ---
:1955 Author Organization eClinicalWorks Care Team Providers Name Role Phone Manolo Singh Provider Role Unavailable Allergies, Adverse Reactions, Alerts Substance Reaction Event Type N.K.D.A. 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 04473344635 1 MG Orally Once November Active 1 tablet a day 2018 Atorvastatin [facility] 17321410903 80 MG Orally Active 1 tablet Calcium Once a day Lisinopril [facility] 47976866959 10 MG Orally August Active 1 tablet Once a day 2018 Aspir-[address] [facility] 05651921912 81 MG Orally Active 1 tablet Once a day Results No Known Results Summary Purpose eClinicalWorks Submission
--- OUTSIDE RECORDS SUMMARY | 2018-10-27 07:16 | XMS REPORT ---
[...] Status Dosage System Date Date Folic Acid [facility] 36930711478 1 MG Orally Once Active 1 tablet a day Atorvastatin [facility] 95103927137 80 MG Orally Active 1 tablet Calcium Once a day Aspir-81 [facility] 31572579181 81 MG Orally Active 1 tablet Once a day Results No Known Results Immunizations Vaccine Administration Date TDAP > 7 Years-Adacel Jun 30, 2018 PNEUMAVAX Jun 30, 2018 Summary Purpose eClinicalWorks Submission
--- OUTSIDE RECORDS SUMMARY | 2018-10-27 07:16 | XMS REPORT ---
:1955 Author Organization eClinicalWorks Care Team Providers Name Role Phone Phliipp Alvarez Provider Role Unavailable Allergies, Adverse Reactions, Alerts Substance Reaction Event Type N.K.D.A. 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
--- OUTSIDE RECORDS SUMMARY | 2018-10-27 07:17 | XMS REPORT ---
:1955 Author Organization eClinicalWorks Care Team Providers Name Role Phone [place] Provider Role Unavailable Allergies, Adverse Reactions, Alerts Substance Reaction Event Type N.K.D.A. 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 (CVA) Problem HTN, goal below 140/90 I10 Active Assessment Elevated PSA R97.20 Active Problem Mixed hyperlipidemia E78.2 Active Problem Folate deficiency E53.8 Active Medications Medication Code Code Instructions Start End Status Dosage System Date Date [facility] 67638030767 81 MG Orally Active 1 tablet Once a day Folic Acid [facility] 30324561790 1 MG Orally Once November Active 1 tablet a day 2018 Lisinopril [facility] 46274362565 10 MG Orally August Active 1 tablet Once a day 2018 Atorvastatin [facility] 17731910870 80 MG Orally Active 1 tablet Calcium Once a day Results Name Result Date Reference Range Unit Abnormality Flag URINALYSIS AUTO W/O SCOPE (39030) ----NIT neg [id number] ----URO 0.2 [id number] ----PROTEIN neg [id number] ----pH 7.0 20180902 ----BLO 2+ [id number] ----GLUCOSE neg [id number] ----DAGOBERTO neg [id number] ----BILIRUBIN neg [id number] ----KETONES neg [id number] ----SPECIFIC GRAVITY 1.015 [id number] PVR ----PVR 0 [id number] Summary Purpose eClinicalWorks Submission
--- OUTSIDE RECORDS SUMMARY | 2018-10-27 07:17 | XMS REPORT ---
:1955 Author Organization eClinicalWorks Care Team Providers Name Role Phone SinghManolo Provider Role Unavailable Allergies, Adverse Reactions, Alerts Substance Reaction Event Type N.K.D.A. 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) Problem HTN, goal below 140/90 I10 Active Problem Tobacco use disorder, continuous F17.209 Active Assessment Folate deficiency E53.8 Active Assessment Hematuria, unspecified type R31.9 Active Assessment Tobacco use disorder, continuous F17.209 Active Assessment Coronary artery disease involving I25.10 Active [place] coronary artery of [place] heart, angina presence unspecified Assessment Mixed hyperlipidemia E78.2 Active Assessment Chronic obstructive pulmonary J44.9 Active disease, unspecified COPD type Assessment 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
--- OUTSIDE RECORDS SUMMARY | 2018-10-27 07:17 | XMS REPORT ---
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
--- OUTSIDE RECORDS SUMMARY | 2018-10-27 07:17 | XMS REPORT ---
:1955 Author Organization eClinicalWorks Care Team Providers Name Role Phone Ricki Reilly Provider Role Unavailable Allergies, Adverse Reactions, Alerts Substance Reaction Event Type N.K.D.A. 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 Active accident (CVA) Problem Mixed hyperlipidemia E78.2 Active Problem Folate deficiency E53.8 Active Medications Medication Code Code Instructions Start End Status Dosage System Date Date [facility] 66239197307 81 MG Orally Active 1 tablet Once a day Lisinopril [facility] 34481557680 10 MG Orally August Active 1 tablet Once a day 2018 Folic Acid [facility] 90243157924 1 MG Orally Once November Active 1 tablet a day 2018 Atorvastatin [facility] 96755836204 80 MG Orally Active 1 tablet Calcium Once a day Results No Known Results Summary Purpose eClinicalWorks Submission
--- OUTSIDE RECORDS SUMMARY | 2018-10-27 07:17 | XMS REPORT ---
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
--- OUTSIDE RECORDS SUMMARY | 2018-10-27 07:17 | XMS REPORT ---
:1955 Author Organization eClinicalWorks Care Team Providers Name Role Phone Va Nuñez Provider Role Unavailable Allergies No Known Allergies Problems Problem Type Condition Code Onset Dates Condition Status Problem HTN, goal below 140/90 I10 Active Problem Tobacco use disorder, continuous F17.209 Active Problem Lesion of bladder N32.9 Active Problem Non-hemorrhagic cerebrovascular I63.9 Active accident (CVA) Problem Mixed hyperlipidemia E78.2 Active Problem Folate deficiency E53.8 Active Medications No Known Medications Results No Known Results Summary Purpose eClinicalWorks Submission
[2018-10-27] MEDS ORDERED: FENTANYL CITR 100 MCG/2 ML ONE (07:25)
[2018-10-27] MEDS ORDERED: PROPOFOL 200 MG/20 ML VIAL IV ONE (07:25)
[2018-10-27] MEDS ORDERED: ONDANSETRON 4 MG/2 ML VIAL ONE (07:28)
[2018-10-27] MEDS ORDERED: MIDAZOLAM HCL 2 MG/2 ML INJ ONE (07:29)
[2018-10-27] MEDS ORDERED: LIDOCAINE 2% MPF 5 ML VIAL ONE (07:29)
[2018-10-27] MEDS ORDERED: Ringers Lactate 1,000 ML IV ONE (07:31)
[2018-10-27] MEDS ORDERED: CEFTRIAXONE/SWI 1gm 1 GM/10 ML SYR IV ONE (07:45)
[2018-10-27] MEDS ORDERED: EPHEDRINE SULF 50 MG/ML VIAL ONE (07:54)
--- NOTE | 2018-10-27 09:14 | RAD REPORT ---
EXAM DESCRIPTION: RAD - Urethrocystogrphy Retrograde - 10/27/2018 8:55 am CLINICAL HISTORY: CYSTO COMPARISON: No comparisons FINDINGS: Total fluoro time: 1 minutes and 3 seconds
--- NOTE | 2018-11-17 20:07 | OP ---
Date of Procedure: 10/27/2018 Surgeon: ANDREA ARELLANO Sole Dyer: Va Nuñez, Nurse practitioner. Preoperative Diagnosis: Probable bladder tumor. Postoperative Diagnosis: Probable bladder tumor. Procedure Performed: Cystoscopy, bilateral retrograde pyelograms, biopsy of bladder lesion with fulg uration. Anesthesia: General. Procedure In Detail: With the patient in modified dorsal lithotomy position, on cystoscopy table aft er the satisfactory induction of anesthesia, genitalia were prepped and draped in usual sterile fashi on. A 23-Beninese cystoscope was passed per urethra. The urethra and prostate were normal. There was mild prostatic enlargement. To the right and lateral and slightly cephalad to the right ureteral or ifice, there was a small papillary lesion. The remainder of the bladder was unremarkable. Bilateral retrograde pyelograms were performed with an 8 Beninese cone tip catheter revealing normal upper tract . A cold cup biopsy forceps was used to remove the papillary lesion noted above and it was sent as edy granger. The area was fulgurated with Bugbee electrode creating complete hemostasis. Fulguration ar ea was away from the urethral orifice. Clear efflux was noted from both urethral orifices at the conc lusion of the procedure. The bladder was drained, cystoscope was removed and the patient was awakened and transferred by stretcher to the recovery room in satisfactory condition. There were no complicat ions. Blood loss was less than 10 cc. He tolerated the procedure well. Specimen was noted above. Counts were correct. SAMANTHA/HEIDI Voice ID: [id number] Report ID: [id number]
== END 2018-10-27 10:09 | disposition home or self-care (01) ==
LOC: OR 07:04
PROVIDERS: ATTEND Internal Medicine Hematology & Oncology
PROC: BT14ZZZ Fluoroscopy of Kidneys, Ureters and Bladder (ICD-10-PCS; 2018-10-27)
PROC: 0TBB8ZX Excision of Bladder, Via Natural or Artificial Opening Endoscopic, Diagnostic (ICD-10-PCS; principal; 2018-10-27 07:30)
DX: C67.9 Malignant neoplasm of bladder, unspecified (principal); I10 Essential (primary) hypertension; E78.2 Mixed hyperlipidemia; E53.8 Deficiency of other specified B group vitamins; F17.210 Nicotine dependence, cigarettes, uncomplicated; Z79.82 Long term (current) use of aspirin; Z79.899 Other long term (current) drug therapy; Z86.73 Personal history of transient ischemic attack (TIA), and cerebral infarction without residual deficits; Z80.41 Family history of malignant neoplasm of ovary; Z80.3 Family history of malignant neoplasm of breast; Z83.3 Family history of diabetes mellitus; Z82.49 Family history of ischemic heart disease and other diseases of the circulatory system; Z82.3 Family history of stroke
CPT/HCPCS: 36415; 51610; 74450; 80053; 81003; 81015; 85025; 85610; 85730; 87086; 87088; 88305; J0696; J2250; J2405; J2704; J3010

== ENCOUNTER 2022-02-16 01:22 | Inpatient (IN) | payer OTHER ==
--- OUTSIDE RECORDS SUMMARY | 2022-02-16 01:26 | XMS REPORT | Continuity of Care Document ---
:1955 Author Organization [facility] t Address [address] [place] [address] Care Team Providers Name Role Phone Manolo Singh Attending Clinician Unavailable MAGALIS ALMONTE Attending Clinician Unavailable Payers Payer Name Policy Type Policy Number Effective Date Expiration Date S ource ALLIED BENEFIT [id number] 2019 00:00:00 Problems This patient has no known problems. Allergies, Adverse Reactions, Alerts Allergy Allergy Status Severity Reaction(s) Onset Inactive Treating Comm ents Source Name Type Date Date Clinician NO KNOWN Drug Active Univers ALLERGIE Class ity of S [facility] Social History Social Habit Start Date Stop Date Quantity Comments Source Sex Assigned At [birth year] [facility] 00:00:00 [facility]:00 [facility] Medications Ordered Filled Start Stop Current Ordering Indication Dosage Frequency Signature Comments Components Source Medication Medication Date Date Medication? Clinician (SIG) Name Name Aspir-81 Aspir-81 Yes Manolo [address] [facility] Lisinopril Lisinopril Yes Manolo 1 tablet Common [facility] Folic Acid Folic Acid Yes Manolo 1 tablet Common [facility] Atorvastati Atorvastati Yes Manolo 1 tablet Common n Calcium n Calcium [facility] Immunizations Ordered Immunization Filled Immunization Date Status Commen ts Source Name Name TDAP > 7 TDAP > 7 2018-06-30 Completed Common [facility]acel Years-Adacel 00:00:00 - [facility] PNEUMAVAX 23 PNEUMAVAX 23 2018-06-30 Completed Common Spi rit 00:00:00 - [facility] Procedures This patient has no known procedures. Plan of Care Planned Activity Planned Date Details Comments Source Future Scheduled 2022-02-07 INFLUENZA VACCINE (#1) [facility] 00:00:00 [code = INFLUENZA Medical Ce nter VACCINE (#1)] Future Scheduled 2021-06-[address] [facility] 00:00:00 (12+) [code = Medical Center DEPRESSION SCREENING (12+)] Future Scheduled 2021-06-09 FALLS RISK SCREENING [facility] 00:00:00 [code = FALLS RISK Medical C enter SCREENING] Future Scheduled 2019-12-09 PNEUMOCOCCAL 65+ YRS ([address] [facility] 00:00:00 - PCV) [code = Medical Cente r PNEUMOCOCCAL 65+ YRS (1 - PCV)] Future Scheduled 2004 SHINGLES VACCINES ([address] [facility] 00:00:00 2) [code = SHINGLES [facility] VACCINES (1 of 2)] Future Scheduled 1973 DTAP/TDAP/TD VACCINES [facility] 00:00:00 (1 - Tdap) [code = Medical C enter DTAP/TDAP/TD VACCINES (1 - Tdap)] Future Scheduled 1972 HEPATITIS C SCREENING [facility] 00:00:00 [code = HEPATITIS C Medical Center SCREENING] Future Scheduled 1955-06[birth year]10 COVID-19 VACCINE (#1) [facility] 00:00:00 [code = COVID-[address] VACCINE (#1)] Future Scheduled 1954 CT Colonography (combo) [facility] 00:00:00 [code = CT Colonography [facility] (combo)] Future Scheduled 1955 Screening for malignant [facility] 00:00:00 neoplasm of colon Medical Ce nter (procedure) [code = 337894576] Future Scheduled 1954 Screening for malignant [facility] 00:00:00 neoplasm of colon Medical Ce nter (procedure) [code = 877874556] Future Scheduled 1954 Screening for malignant [facility] 00:00:00 neoplasm of colon Medical Ce nter (procedure) [code = 209496486] Future Scheduled 1954 Screening for malignant [facility] 00:00:00 neoplasm of colon Medical Ce nter (procedure) [code = 463125072] Future Scheduled 1955 Sigmoidoscopy [code = [facility] 00:[facility]00 Sigmoidoscopy] Medical Cente r Encounters Start End Encounter Admission Attending Care Care Encounter Source Date/Time Date/Time Type Type Clinicians Facility Department ID 2021-07-27 [facility] [id number] Common 08:34:[id number] [facility] 2021-07-04 [facility] [id number] Common 13:36:[id number] [facility] 2021-07-04 [facility] [id number] Common 13:08:[id number] [facility] 2021-07-04 Outpatient Singh, [facility] [id number] Common 12:29:[id number] [facility] 2021-07-04 Outpatient Singh, [facility] [id number] Common 11:43:[id number] [facility] 2021-07-04 [facility] [id number] Common 11:36:[id number] [facility] 2021-07-04 Outpatient Singh, [facility] [id number] Common 11:32:[id number] [facility] 2021-07-04 [facility] [id number] Common 11:25:[id number] [facility] 2021-07-04 [facility] [id number] Common 11:13:[id number] [facility] 2022-01-25 2022-01-25 ambulatory STLMLC ST[facility]C [id number] Common 00:00:00 00:00:00 [facility] 2021-10-25 2021-10-25 ambulatory STLMLC ST[facility]C [id number] Common 00:00:00 00:00:00 [facility] 2021-10-25 2021-10-25 ambulatory STLMLC STL[facility]C [id number] Common 00:00:00 00:00:00 [facility] 2021-07-27 2021-07-27 ambulatory STLMLC STL[facility]C [id number] Common 00:00:00 00:00:00 [facility] 2021-04-19 2021-04-19 ambulatory STLMLC STLMLC [id number] Common 00:00:00 00:00:00 [facility] 2021-01-17 2021-01-17 Outpatient STLMLC STLMLC [id number] Common 00:00:00 00:00:00 [facility] 2020-11-21 2020-11-21 Outpatient STLMLC STLMLC [id number] Common 00:00:00 00:00:00 [facility] 2020-08-28 2020-08-28 Outpatient STLMLC STLMLC [id number] Common 00:00:00 00:00:00 [facility] 2020-06-19 2020-06-19 Outpatient STLMLC STLMLC [id number] Common 00:00:00 00:00:00 [facility] 2020-06-15 2020-06-15 Outpatient STLMLC STLMLC [id number] Common 00:00:00 00:00:00 [facility] 2020-01-17 2020-01-17 [id number] Common 10:30:00 10:30:00 [facility] 2020-01-04 2020-01-04 [facility] [id number] Common 09:00:00 09:00:00 t Specialty/U Sp adryan Specialty roly - [facility] /[facility] 2020-01-03 2020-01-03 [facility] [id number] Common 09:23:00 09:23:[address] [facility] 2019-12-22 2019-12-22 [facility] [id number] Common 13:30:00 13:30:00 t Specialty/U Sp adryan Specialty rology - [facility] 2019-12-22 2019-12-22 [facility] [id number] Common 10:21:00 10:21:[address] [facility] 2019-12-12 2019-12-12 Emergency X [facility] ERT [id number] Univers 13:08:29 13:08:29 [facility] 2019 2019 [facility] [id number] Common 14:19:00 14:19:00 t Specialty/U Sp adryan Specialty rology - [facility] 2019-11-16 2019-11-16 [facility] [id number] Common 09:15:00 09:15:[address] [facility] 2019-10-01 2019-10-01 [facility] [id number] Common 10:49:00 10:49:00 t Specialty/U Sp adryan Specialty rology - [facility] 2019-05-24 2019-05-24 [facility] [id number] Common 11:30:00 11:30:[address] [facility] 2019-04-30 2019-04-30 [facility] [id number] Common 09:00:00 09:00:00 t Specialty/U Sp adryan Specialty rology - [facility] 2019-04-22 2019-04-22 [facility] [id number] Common 08:30:00 08:30:[address] [facility] 2019-03-25 2019-03-25 [facility] [id number] Common 14:40:00 14:40:00 t Specialty/U Sp adryan Specialty rology - [facility] 2019-03-01 2019-03-01 [facility] [id number] Common 09:00:00 09:00:00 t Specialty/U Sp adryan Specialty rology - [facility] 2018-10-12 2018-10-12 [facility] [id number] Common 11:00:00 11:00:[address] [facility] 2018-09-28 2018-09-28 [facility] [id number] Common 11:16:00 11:16:00 t Specialty/U Sp adryan Specialty rology - [facility] 2018-09-24 2018-09-24 [facility] [id number] Common 10:49:00 10:49:00 t Specialty/U Sp adryan Specialty rology - [facility] 2018-09-22 2018-09-22 [facility] [id number] Common 13:00:00 13:00:00 t Specialty/U Sp adryan Specialty rology - [facility] 2018-09-08 2018-09-08 [facility] [id number] Common 09:43:00 09:43:00 t Specialty/U Sp adryan Specialty rology - [facility] 2018-09-02 2018-09-02 [facility] [id number] Common 09:00:00 09:00:00 t Specialty/U Sp adryan Specialty rology - [facility] 2018-08-21 2018-08-21 [facility] [id number] Common 10:45:00 10:45:[address] [facility] 2018-07-09 2018-07-09 [facility] [id number] Common 13:45:00 13:45:00 t Specialty[facility] /[facility] Clinic [facility] 2018-06-30 2018-06-30 Outpatient Alycia Aguila [id number] Common 11:00:00 11:00:00 t [facility] [address] [facility] Results This patient has no known results.
[2022-02-16 02:46] LABS: Absolute Lymphocytes (CBC) 0.8 K/uL (0.7-4.9); Hematocrit 50.2 % (39.6-49.0); Lymphocytes % 5.2 % (15.3-44.8); MCV 95.3 fL (80-100); MPV 8.3 fL (7.6-11.3); RBC Red Blood Cell Count 5.27 M/uL (4.33-5.43)
[2022-02-16] MEDS ORDERED: NA CHLORIDE 0.9% 1,000 ML ONE ×2 (02:52→11:11)
[2022-02-16 03:01] LABS: Albumin 4.1 g/dL (3.4-5.0); Bilirubin Total 0.5 mg/dL (0.2-1.0); Potassium 3.5 mmol/L (3.5-5.1); Protein, Total 8.5 g/dL (6.4-8.2)
[2022-02-16] MEDS ORDERED: MORPHINE 2 MG/ML SYR ONE (06:10)
[2022-02-16] MEDS ORDERED: NA CHLORIDE 0.9% 100 ML ONE (06:34)
[2022-02-16] MEDS ORDERED: PIPERACIL/TAZO 3.375 GM VIAL IV ONE (06:34)
--- NOTE | 2022-02-16 06:35 | EDPHYS ---
Physician Documentation [facility] Name: Gutierrez Cai Age: 66 yrs Sex: Male : 1955 Arrival Date: 02/16/2022 Time: 01:27 Bed 6 Private MD: ED Physician Marc Garcia HPI: 02/16 02:24 This 66 yrs old Black Male presents to ER via Ambulatory with complaints of Vomiting, rn Constipation. 02:24 The patient presents to the emergency department with nausea, vomiting, abdominal pain, rn of the umbilical area. Onset: The symptoms/episode began/occurred yesterday. Possible causes: unknown. The symptoms are aggravated by nothing. The symptoms are alleviated by nothing. Associated signs and symptoms: Pertinent positives: abdominal pain, nausea, vomiting, Pertinent negatives: GI bleeding. Severity of symptoms: At their worst the symptoms were mild in the emergency department the symptoms are unchanged. The patient has experienced a previous episode. The patient has not recently seen a physician. Historical: - Allergies: 02:01 No Known Allergies; bb - Home Meds: 02:01 aspirin 81 mg Oral TbEC 1 tab once daily [Active]; atorvastatin oral [Active]; bb Lisinopril Oral [Active]; - PMHx: 02:01 Hypercholesterolemia; Hypertensive disorder; Bowel obstruction; bb - PSHx: 02:01 abdominal surgery; bb - Immunization history:: Moderna x 3. - Social history:: Smoking status: Patient reports the use of cigarette tobacco products. - Family history:: not pertinent. - Hospitalizations: : No recent hospitalization is reported. ROS: 02:24 Constitutional: Negative for fever, chills, and weight loss, Eyes: Negative for injury, rn pain, redness, and discharge, ENT: Negative for injury, pain, and discharge, Neck: Negative for injury, pain, and swelling, Cardiovascular: Negative for chest pain, palpitations, and edema, Respiratory: Negative for shortness of breath, cough, wheezing, and pleuritic chest pain, Abdomen/GI: + abd pain/nausea/vomiting/constipation Back: Negative for injury and pain, MS/Extremity: Negative for injury and deformity, Skin: Negative for injury, rash, and discoloration, Neuro: Negative for headache, weakness, numbness, tingling, and seizure. Exam: 02:24 Constitutional: Thin male, no acute distress Head/Face: Normocephalic, atraumatic. 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 No pulse deficits. Respiratory: No increased work of breathing, no retractions or nasal flaring. Abdomen/GI: soft, mild periumbilical tenderness, no rebound Skin: Warm, dry MS/ Extremity: Pulses equal, no cyanosis. Neuro: Awake and alert, GCS 15 Vital Signs: 01:58 BP 116 / 88; Pulse 87; Resp 18 S; Temp 98.4(O); Pulse Ox 100% on R/A; Weight 63.96 kg bb (R); Height 5 ft. 11 in. (180.34 cm) (R); Pain 8/10; 02:52 BP 121 / 86; Pulse 79; Resp 17; Pulse Ox 100% on R/A; ll3 03:55 BP 148 / 90; Pulse 82; Resp 16; Pulse Ox 96% on R/A; ll3 05:30 BP 158 / 96; Pulse 82; Resp 16; Pulse Ox 97% on R/A; ll3 05:57 BP 112 / 55; Pulse 84; Resp 24; ke1 08:15 BP 144 / 94; Pulse 86; Resp 16; Temp 98.2; Pulse Ox 100% ; Pain 5/10; ko1 01:58 Body Mass Index 19.67 (63.96 kg, 180.34 cm) bb MDM: 01:27 Patient medically screened. rn 06:33 Differential diagnosis: Nonspecific abd pain, pancreatitis, viral gastroenteritis, rn gastroenteritis, bowel obstruction. Data reviewed: vital signs, nurses notes, lab test result(s), radiologic studies, CT scan, and as a result, I will admit patient. Counseling: I had a detailed discussion with the patient and/or guardian regarding: the historical points, exam findings, and any diagnostic results supporting the discharge/admit diagnosis, lab results, radiology results, the need for further work-up and treatment in the hospital. Response to treatment: the patient's symptoms have mildly improved after treatment, and as a result, I will admit patient. Admission orders: after a detailed discussion of the patient's condition and case, the admit orders are written by me. 06:38 ED course: Consulted with Dr. Sullivan, requests abx, Ng tube, pain meds, and admission to rn hospitalist service. . 02/16 01:54 Order name: CBC with Diff; Complete Time: 03:02 rn 02/16 01:54 Order name: CMP; Complete Time: 03:02 rn 02/16 01:54 Order name: Lipase; Complete Time: 03:02 rn 02/16 06:34 Order name: SARS RAPID rn 02/16 10:15 Order name: CBC with Automated Diff EDMS 02/16 10:16 Order name: CBC with Automated Diff EDMS 02/16 01:54 Order name: CT Abd/Pelvis - IV Contrast Only rn 02/16 06:46 Order name: XRAY Chest (1 view) bb 02/16 10:16 Order name: Comprehensive Metabolic Panel EDIN 02/16 10:16 Order name: Comprehensive Metabolic Panel EDIN 02/16 10:16 Order name: Magnesium EDMS 02/16 10:16 Order name: Magnesium EDIN 02/16 10:16 Order name: Phosphorus EDMS 02/16 10:16 Order name: Phosphorus EDMS 02/16 01:54 Order name: IV Saline Lock; Complete Time: 02:43 rn 02/16 01:54 Order name: Labs collected and sent; Complete Time: 02:43 rn 02/16 06:13 Order name: NG Tube; Complete Time: 06:55 rn 02/16 09:34 Order name: XRAY Chest (1 view) ph 02/16 10:15 Order name: Abdomen W Erect EDIN 02/16 10:15 Order name: CONS Physician Consult EDIN 02/16 10:15 Order name: NPO EDIN 02/16 10:17 Order name: Abdomen 1 View (KUB) EDIN 02/16 10:17 Order name: Abdomen 1 View (KUB) EDIN Administered Medications: 02:51 Drug: NS 0.9% 1000 ml Route: IV; Rate: 1 bolus; Site: right forearm; ll3 06:05 Drug: morphine 2 mg Route: IVP; Infused Over: 4 mins; Site: right antecubital; ke1 06:55 Drug: Zosyn (piperacillin-tazobactam) 3.375 grams Route: IVPB; Infused Over: 60 mins; ke1 Site: right antecubital; Disposition Summary: 02/16/22 06:34 Hospitalization Ordered Hospitalization Status: Inpatient Admission rn Provider: Yvette Bledsoe rn Condition: Stable rn Problem: new rn Symptoms: have improved rn Bed/Room Type: Standard rn Location: Telemetry/MedSurg (Inpatient)(02/16/22 12:07) eb Room Assignment: 408(02/16/22 12:07) eb Diagnosis - Other intestinal obstruction rn Forms: - Medication Reconciliation Form rn - SBAR form rn Signatures: Dispatcher [employer] EDMS Bhavana Stewart, RN Ashtyn Reoblledo, RN Marc Fairchild MD MD rn Botello, Elizabeth eb Loubet, Lynsea RN RN ll3 Elsi Hardin RN RN ke1 Corrections: (The following items were deleted from the chart) 06:36 06:34 Telemetry/MedSurg (Inpatient) rn mw 06:36 06:34 rn mw 06:55 06:47 Chest Single View+RAD.RAD.BRZ ordered. EDMS EDMS 12:07 06:36 [facility] ER HOLD mw eb 12:07 06:36 ERHOLD- mw eb
--- NOTE | 2022-02-16 06:35 | ER ---
Nurse's Notes [facility] Name: Gutierrez Cai Age: 66 yrs Sex: Male : 1955 Arrival Date: 02/16/2022 Time: 01:27 Bed 6 Private MD: Diagnosis: Other intestinal obstruction Presentation: 02/16 01:58 Chief complaint: Patient states: he is having abdominal pain and has not had a bowel bb movement for 3 to 4 days and he is vomiting he had a bowel obstruction earlier this year and had to have surgery. Coronavirus screen: At this time, the client does not indicate any symptoms associated with coronavirus-19. Ebola Screen: No symptoms or risks identified at this time. Initial Sepsis Screen: Does the patient meet any 2 criteria? No. Patient's initial sepsis screen is negative. Does the patient have a suspected source of infection? Yes: Acute abdominal pain. Risk Assessment: Do you want to hurt yourself or someone else? Patient reports no desire to harm self or others. Onset of symptoms was February 16, 2022. 01:58 Method Of Arrival: Ambulatory bb 01:58 Acuity: JEANETTE 3 bb Historical: - Allergies: 02:01 No Known Allergies; bb - Home Meds: 02:01 aspirin 81 mg Oral TbEC 1 tab once daily [Active]; atorvastatin oral [Active]; bb Lisinopril Oral [Active]; - PMHx: 02:01 Hypercholesterolemia; Hypertensive disorder; Bowel obstruction; bb - PSHx: 02:01 abdominal surgery; bb - Immunization history:: Moderna x 3. - Social history:: Smoking status: Patient reports the use of cigarette tobacco products. - Family history:: not pertinent. - Hospitalizations: : No recent hospitalization is reported. Screenin:55 Abuse screen: Denies threats or abuse. Denies injuries from another. Nutritional ll3 screening: No deficits noted. Tuberculosis screening: No symptoms or risk factors identified. 06:26 Fall Risk No fall in past 12 months (0 pts). No secondary diagnosis (0 pts). IV access ll3 (20 points). Ambulatory Aid- None/Bed Rest/Nurse Assist (0 pts). Gait- Normal/Bed Rest/Wheelchair (0 pts) Mental Status- Oriented to own ability (0 pts). Total Ballard Fall Scale indicates No Risk (0-24 pts). Assessment: 02:52 General: Appears uncomfortable, Behavior is calm, cooperative. Pain: Complains of pain ll3 in umbilical area Pain currently is 8 out of 10 on a pain scale. Pain began 2-3 days ago. Is continuous. Neuro: Level of Consciousness is awake, alert, obeys commands, Oriented to person, place, time, situation. Respiratory: Respiratory effort is even, unlabored, Respiratory pattern is regular, symmetrical. GI: Abdomen is round non-distended, Bowel sounds hyperactive in right upper quadrant and left upper quadrant Reports upper abdominal pain, constipation, nausea, vomiting, Patient currently denies diarrhea. Derm: Skin is pink, warm \T\ dry. 03:55 Reassessment: No changes from previously documented assessment. Patient and/or family ll3 updated on plan of care and expected duration. Pain level reassessed. Patient is alert, oriented x 3, equal unlabored respirations, skin warm/dry/pink. 05:47 Reassessment: No changes from previously documented assessment. Patient and/or family ll3 updated on plan of care and expected duration. Pain level reassessed. Patient is alert, oriented x 3, equal unlabored respirations, skin warm/dry/pink. 06:04 Pain: Complains of pain in umbilical area Pain currently is 8 out of 10 on a pain scale.ke1 08:09 Reassessment: Patient is alert, oriented x 3, equal unlabored respirations, skin ko1 warm/dry/pink. Vital Signs: 01:58 BP 116 / 88; Pulse 87; Resp 18 S; Temp 98.4(O); Pulse Ox 100% on R/A; Weight 63.96 kg bb (R); Height 5 ft. 11 in. (180.34 cm) (R); Pain 8/10; 02:52 BP 121 / 86; Pulse 79; Resp 17; Pulse Ox 100% on R/A; ll3 03:55 BP 148 / 90; Pulse 82; Resp 16; Pulse Ox 96% on R/A; ll3 05:30 BP 158 / 96; Pulse 82; Resp 16; Pulse Ox 97% on R/A; ll3 05:57 BP 112 / 55; Pulse 84; Resp 24; ke1 08:15 BP 144 / 94; Pulse 86; Resp 16; Temp 98.2; Pulse Ox 100% ; Pain 5/10; ko1 01:58 Body Mass Index 19.67 (63.96 kg, 180.34 cm) ED Course: 01:27 Patient arrived in ED. ja2 01:27 Marc Garcia MD is Attending Physician. rn 01:30 Ismael Quinones, NILDA is Primary Nurse. ja4 02:01 Triage completed. bb 02:01 Arm band placed on Patient placed in an exam room, on a stretcher, on pulse oximetry. bb 02:43 Inserted saline lock: 20 gauge in right forearm, using aseptic technique. ke1 02:55 Patient has correct armband on for positive identification. Bed in low position. Call ll3 light in reach. Side rails up X 1. 03:37 CT Abd/Pelvis - IV Contrast Only In Process Unspecified. EDMS 06:33 Yvette Bledsoe MD is Hospitalizing Provider. rn 06:50 NGT: inserted 16 Fr. via right nare. ke1 07:23 XRAY Chest (1 view) In Process Unspecified. EDMS 09:12 NGT: verified placement of air over stomach, Advanced NGT, obtained approximately 400 ko1 cc brown liquid. Secured ngt. Patient tolerated well. Recheck. 09:59 XRAY Chest (1 view) In Process Unspecified. EDMS Administered Medications: 02:51 Drug: NS 0.9% 1000 ml Route: IV; Rate: 1 bolus; Site: right forearm; ll3 06:05 Drug: morphine 2 mg Route: IVP; Infused Over: 4 mins; Site: right antecubital; ke1 06:55 Drug: Zosyn (piperacillin-tazobactam) 3.375 grams Route: IVPB; Infused Over: 60 mins; ke1 Site: right antecubital; Medication: 06:26 VIS not applicable for this client. ll3 Outcome: 06:34 Decision to Hospitalize by Provider. rn 13:23 Patient left the ED. ph Signatures: Dispatcher [employer] EDMS Ashtyn Gómez RN RN bb Nieto, Roman, MD MD rn Hall, Patricia, RN RN ph Alexander, Jessica ja2 Damaris Mayfield RN RN 3 Elsi Hardin RN RN ke1 Ismael Quinones, RN RN 4 Celeste Ramon RN RN ko1
[2022-02-16 07:18] LABS: SARS-CoV-2 Antigen Rapid Res Negative (Negative)
--- NOTE | 2022-02-16 07:35 | RAD REPORT ---
EXAM DESCRIPTION: RAD - Chest Single View - 02/16/2022 7:21 am CLINICAL HISTORY: s/p NG tube placement a COMPARISON: Abdomen 1 View (KUB) dated 07/13/2021; Chest Single View dated 03/16/2018; CHEST PA AND LAT 2 VIEW dated 10/04/2009; Abdomen Pelvis W Contrast dated 02/16/2022 FINDINGS: Lines: NG tube terminates at the mid to distal esophagus. The should be advanced by approx imately 20 cm. Lungs: No evidence of edema or pneumonia. Pleural: No significant pleural effusions or pneumothorax. Cardiac: The heart size is within normal limits. Mediastinum: Within normal limits. Bones: No acute fractures. Other: None IMPRESSION: No acute cardiopulmonary disease. NG tube in the mid to distal esophagus. Recommend adva ncing by 20 cm.
--- NOTE | 2022-02-16 09:39 | P.CNS ---
Date of Consult: 02/16/22 Reason for consult: Small bowel obstruction History of present illness: Patient is a 66-year-old gentleman who presents with 3-day history of increasing abdominal distention, discomfort nausea and vomiting. Patient states that his last bowel movement was 3 to 4 days ago. Patient states that last flatus was 2 days ago. Patient denies sore throat, runny nose, headaches, dizziness, chest pain, fever or chills. Patient denies dysuria or hematuria. Patient had a small bowel obstruction back in July associated with stricture of the terminal ileum and internal herniation. Patient underwent ileocecal ectomy and recovered well postoperatively. Review of systems: Otherwise unremarkable Past medical history: Hypercholesterolemia and hypertension Past surgical history: Exploratory laparotomy with ileocecal ectomy Allergies: None Social history: Patient does smoke and has been counseled. Patient denies drinking alcohol. Family history: Noncontributory Vital signs: Stable, afebrile Physical exam: Awake, alert and oriented x3 Head and neck exam: Cranial nerves II through XII grossly within normal limit, no neck masses, no JVD, throat clear, neck supple. Chest: Clear Heart: S1-S2 Abdomen: Soft, slightly distended, hypoactive bowel sounds with minimal tenderness no rebound, rigidity or guarding noted. Extremity: Neurovascular intact, nontender Neuro: Nonfocal Diagnostic data: White count is 14.8 H&H is 17.6 and 50.2 BUN is [address] of the abdomen pelvis reveals a high-grade obstruction with dilated small bowel loops with air and fluid level. Colon is collapsed. Assessment: Small bowel obstruction. It is unclear at this time whether this is a complete or partial obstruction. Plan/recommendation: N.p.o., NG tube, IV fluids, empiric antibiotics. Serial abdominal exam. We will repeat an abdominal x-ray tomorrow morning. Patient's NG tube was in the esophagus initially. It has been advanced with large amount of fluid aspirated. Patient feels a little better. We will follow this patient closely. CC:
[2022-02-16] MEDS ORDERED: HYDROMORPHONE HCL 1 MG/ML INJ IV PRN (10:10)
[2022-02-16] MEDS ORDERED: ONDANSETRON 4 MG/2 ML VIAL IV PRN (10:10)
[2022-02-16] MEDS ORDERED: ACETAMINOPHEN 500 MG TAB PO PRN (10:10)
--- NOTE | 2022-02-16 10:10 | RAD REPORT ---
EXAM DESCRIPTION: RAD - Chest Single View - 02/16/2022 9:57 am CLINICAL HISTORY: check NGT placement COMPARISON: Chest Single View dated 02/16/2022; Abdomen 1 View (KUB) dated 07/13/2021; Chest Single Vie w dated 03/16/2018; CHEST PA AND LAT 2 VIEW dated 10/04/2009 FINDINGS/IMPRESSION: The NG tube has been advanced and now terminates overlying the stomach.
[2022-02-16] MEDS: Levofloxacin 750mg IV 750 MG/150 ML BAG IV SCH (11:00)
[2022-02-16] MEDS: NA CHLORIDE 0.9% 1,000 ML IV SCH ×2 (11:00→23:29)
[2022-02-16] MEDS ORDERED: Levofloxacin 750mg IV 750 MG/150 ML BAG IV ONE (11:11)
[2022-02-16 11:39] VITALS: BMI 19.6
[2022-02-16] MEDS: METRONIDAZOLE 500mg IVPB 500 MG/100 ML BAG IV SCH ×2 (13:44→20:01)
[2022-02-17] MEDS: METRONIDAZOLE 500mg IVPB 500 MG/100 ML BAG IV SCH ×3 (04:47→20:23)
[2022-02-17 05:54] LABS: Absolute Lymphocytes (CBC) 1.3 K/uL (0.7-4.9); Hematocrit 44.9 % (39.6-49.0); Lymphocytes % 11.7 % (15.3-44.8); MCV 97.2 fL (80-100); MPV 8.4 fL (7.6-11.3); RBC Red Blood Cell Count 4.62 M/uL (4.33-5.43)
[2022-02-17 06:12] LABS: Albumin 3.3 g/dL (3.4-5.0); Bilirubin Total 0.9 mg/dL (0.2-1.0); Magnesium 2.3 mg/dL (1.8-2.4); Phosphorus 2.4 mg/dL (2.5-4.9); Potassium 3.2 mmol/L (3.5-5.1); Protein, Total 6.8 g/dL (6.4-8.2)
--- NOTE | 2022-02-17 07:49 | P.HP ---
Certification for Inpatient Patient admitted to: Inpatient With expected LOS: >2 Midnights Patient will require the following post-hospital care: None Practitioner: I am a practitioner with admitting privileges, knowledge of patient current condition, hospital course, and medical plan of care. Services: Services provided to patient in accordance with Admission requirements found in Title 42 Section 412.3 of the Code of Federal Regulations Patient History Date of Service: 02/16/22 Reason for admission: Small bowel obstruction History of Present Illness: Patient is a 66-year-old gentleman who came to the hospital with abdominal pain and distention. He was having nausea and vomiting. Patient was found to have small bowel obstruction on CT imaging. He did have surgery in July for small bowel obstruction. He comes into the hospital with similar issues. He was seen by Dr. Sullivan this morning. He will be admitted to the hospital with NG tube placement. Hopefully this will resolve on its own. If it does not he may need surgical intervention. Allergies No Known Allergies Allergy (Verified 07/13/21 01:57) Home Medications: Atorvastatin Calcium [Lipitor] 80 mg PO BEDTIME #30 tab 03/17/18 Aspirin [Aspirin EC 81 MG] 81 mg PO DAILY 10/22/18 Lisinopril [Zestril] 20 mg PO DAILY 07/13/21 Codeine/APAP [Tylenol #3*] 1 tab PO Q4H PRN #20 tab 07/20/21 - Past Medical/Surgical History Has patient received pneumonia vaccine in the past: Yes Diabetic: No -: Tobacco abuse -: Hypertension -: Hyperlipidemia -: Hernia repair 2007 Psychosocial/ Personal History: Patient is . He has 3 children. 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 moist/pink, Other (NGT), EOMI, Sclerae nonicteric Neck: Supple, 2+ carotid pulse no bruit, No LAD, Without JVD or thyroid abnormality Respiratory: Clear to auscultation bilaterally, Normal air movement Cardiovascular: Regular rate/rhythm, Normal S1 S2 Gastrointestinal: Hypoactive, No rebound, No guarding, Distended, Tenderness Musculoskeletal: No tenderness Integumentary: No rashes Neurological: Normal gait, Normal speech, Normal strength at 5/5 x4 extr, Normal tone, Normal affect Lymphatics: No axilla or inguinal lymphadenopathy Assessment & Plan - Problems (Diagnosis) (1) SBO (small bowel obstruction) Current Visit: Yes Status: Acute (2) HTN (hypertension) Current Visit: Yes Status: Acute (3) Dyslipidemia Current Visit: Yes Status: Acute - Plan Plan: 1. IV fluids 2. Pain control 3. NG tube to low intermittent wall suction 4. General surgery consultation 5. Strict blood pressure and control 6. Monitor labs and electrolytes 7. IV antibiotics 8. GI DVT prophylaxis Discharge Plan: Home Plan to discharge in: Greater than 2 days - Advance Directives Does patient have a Living Will: No Does patient have a Durable POA for Healthcare: No Time Spent Managing PTS Care (In Minutes): 45
[2022-02-17] MEDS ORDERED: KCL 20 MEQ/100 mL IVPB 20 MEQ/100 ML BAG IV SCH (08:00)
[2022-02-17] MEDS ORDERED: POTASSIUM PHOS 22 MEQ in NA CHLORIDE 0.9% 250 ML IV ONE (08:00)
[2022-02-17] MEDS ORDERED: POTASSIUM PHOS IN 0.9 % NACL 15 MMOL/250 ML BAG IV ONE (08:00)
--- NOTE | 2022-02-17 08:38 | RAD REPORT ---
EXAM DESCRIPTION: RAD - Abdomen W Erect - 02/17/2022 8:31 am CLINICAL HISTORY: Follow-up small bowel obstruction Pain COMPARISON: Abdomen W Erect dated 07/14/2021; Abdomen Pelvis W Contrast dated 02/16/2022 FINDINGS: Prominent distended small bowel loop is seen in the left abdomen. Overall, small bowel obs truction pattern has mildly improved since comparative recent CT examination. Enteric tube tip is in the stomach. No free air seen. No significant bony findings. IMPRESSION: Mild improvement in small bowel obstruction pattern.
[2022-02-17] MEDS: ENOXAPARIN 40 MG/0.4 ML SQ SCH (10:00)
[2022-02-17] MEDS: NA CHLORIDE 0.9% 1,000 ML IV SCH ×2 (10:02→20:26)
--- NOTE | 2022-02-17 10:08 | P.PN ---
Date of Service: 02/17/22 Subjective: Patient is doing better today. Patient is passing gas. Patient has not had a bowel movement. Objective: Vital signs stable, afebrile. White count is 11.1. Abdominal x-ray showed improvement in the dilatation of the small bowel. No free air under the diaphragm is seen. Abdomen: Soft, nondistended, minimal bowel sounds with no tenderness Assessment: Small bowel obstruction likely partial and clinically improving Plan: Continue n.p.o., NG tube, IV fluids, IV antibiotics and serial abdominal exams. We will check another x-ray tomorrow. CC:
--- NOTE | 2022-02-17 17:54 | RAD REPORT ---
EXAM DESCRIPTION: CT - Abdomen Pelvis W Contrast - 02/16/2022 6:45 am CLINICAL HISTORY: The patient is 66 years old and is Male; abd pain, vomiting, hx of bowel obstructi on TECHNIQUE: Axial computed tomography images of the abdomen and pelvis with intravenous contrast. S agittal and coronal reformatted images were created and reviewed. This CT exam was performed using one or more of the following dose reduction techniques: automated exposure control, adjustment of t he mA and/or kV according to patient size, and/or use of iterative reconstruction technique. COMPARISON: CT abdomen pelvis July 12, 2021. FINDINGS: Lung bases: Unremarkable. No mass. No consolidation. ABDOMEN: Liver: Unremarkable. No mass. Gallbladder and bile ducts: Contracted gallbladder. No calcified stones. No ductal dilation. Pancreas: No findings to suggest acute pancreatitis. No mass visualized. No ductal dilation. Spleen: Unremarkable. No splenomegaly. Adrenals: Unremarkable. No mass. Kidneys and ureters: Unremarkable. No solid mass. No hydronephrosis. Stomach and bowel: Colon is collapsed. Prior ileocecal resection/anastomosis. Multiple dilated sm all bowel loops with air-fluid levels. No definite bowel wall thickening. Air-fluid level in the stomach. PELVIS: Appendix: No findings to suggest acute appendicitis. Bladder: Unremarkable. No mass. Reproductive: Unremarkable as visualized. ABDOMEN and PELVIS: Intraperitoneal space: Unremarkable. No free air. No significant fluid collection. Bones/joints: Scoliosis with concavity to the right. Old L4 compression fracture. Degenerative facet arthropathy lower lumbar spine. No dislocation. Soft tissues: Unremarkable. Vasculature: Unremarkable. No abdominal aortic aneurysm. Lymph nodes: No pathologically enlarged lymph nodes. IMPRESSION: High-grade small bowel obstruction. Electronically signed by: Larissa Lovett MD 02/16/2022 5:47 AM CDT Due to temporary technical issues with the PACS/Fluency reporting system, reports are being signed by the in house radiologists without review as a courtesy to insure prompt reporting. The interpreting radiologist is fully responsible for the content of the report.
[2022-02-18] MEDS: NA CHLORIDE 0.9% 1,000 ML IV SCH ×2 (03:00→09:31)
[2022-02-18] MEDS: METRONIDAZOLE 500mg IVPB 500 MG/100 ML BAG IV SCH ×3 (04:49→20:16)
--- NOTE | 2022-02-18 06:05 | P.PN ---
Subjective Date of Service: 02/17/22 PATIENT ACCIDENTALLY REMOVED NG TUBE. PATIENT HAVING FLATUS. HAS NOT HAD A BOWEL MOVEMENT JUST YET. HIS ABDOMEN FEELS MUCH BETTER. REPEAT IMAGING IN THE MORNING. APPRECIATE SURGICAL CONSULTATION. POSSIBLE DIET IN A.M.. Review of Systems 10-point ROS is otherwise unremarkable Physical Examination - Vital Signs Temperature: 97.4 F Blood Pressure: 128/66 Pulse: 44 Respirations: 18 Pulse Ox (%): 96 - Physical Exam General: Alert, In no apparent distress HEENT: Atraumatic, PERRLA, EOMI Neck: Supple, JVD not distended Respiratory: Clear to auscultation bilaterally, Normal air movement Cardiovascular: Regular rate/rhythm, Normal S1 S2 Gastrointestinal: Normal bowel sounds, No tenderness Musculoskeletal: No tenderness Integumentary: No rashes Neurological: Normal speech, Normal tone, Normal affect Lymphatics: No axilla or inguinal lymphadenopathy - Studies Medications List Reviewed: Yes Assessment & Plan - Problems (Diagnosis) (1) SBO (small bowel obstruction) Current Visit: Yes Status: Acute (2) HTN (hypertension) Current Visit: Yes Status: Acute (3) Dyslipidemia Current Visit: Yes Status: Acute - Plan Plan: 1. IV fluids 2. Pain control 3. NG tube was accidentally removed by pt; patient with flatus. Abdominal symptoms have improved. We will probably start a diet in the morning. 4. General surgery consultation appreciated 5. Strict blood pressure and control 6. Monitor labs and electrolytes 7. IV antibiotics 8. GI DVT prophylaxis Discharge Plan: Home Plan to discharge in: 48 Hours - Advance Directives Does patient have a Living Will: No Does patient have a Durable POA for Healthcare: No - Code Status/Comfort Care Code Status Assessed: Yes Code Status: Full Code Critical Care: No Time Spent Managing PTS Care (In Minutes): 35
--- NOTE | 2022-02-18 08:23 | RAD REPORT ---
EXAM DESCRIPTION: RAD - Abdomen W Erect - 02/18/2022 6:57 am CLINICAL HISTORY: Follow-up small bowel obstruction Pain COMPARISON: Abdomen W Erect dated 02/17/2022 FINDINGS: Continued improvement is seen since comparative study in the small bowel obstruction patte rn. On today's study, the bowel gas appears generally nonobstructive. Moderate levoscoliosis of the lumbar spine. No free air. IMPRESSION: The small bowel obstruction previously noted appears resolved.
[2022-02-18] MEDS: ENOXAPARIN 40 MG/0.4 ML SQ SCH (09:30)
[2022-02-18] MEDS ORDERED: NA CHLORIDE 0.9% 1,000 ML IV SCH (09:35)
--- NOTE | 2022-02-18 09:58 | P.PN ---
Date of Service: 02/18/22 Subjective: Patient is doing better today. Patient is passing gas. Patient has no pain. Patient had a bowel movement. Objective: Vital signs stable, afebrile. Laboratory data is pending. Abdominal x-ray shows complete resolution of the small bowel obstruction. Abdomen: Soft, nondistended, positive bowel sounds with no tenderness Assessment: Small bowel obstruction likely partial and clinically improving Plan: Begin liquid diet if tolerated can be advanced to GI soft. When diet is tolerated patient can be discharged to home. CC:
[2022-02-18] MEDS: Levofloxacin 750mg IV 750 MG/150 ML BAG IV SCH (12:04)
--- NOTE | 2022-02-18 12:18 | P.PN ---
Subjective Date of Service: 02/18/22 Chief Complaint: Small bowel obstruction Subjective: Improving No acute events overnight. He has been having flatus. He passed a moderate-sized bowel movement overnight. He endorses hunger and would like to start a diet today. Review of Systems 10-point ROS is otherwise unremarkable Gastrointestinal: Abdominal Pain (minimal, generalized) Physical Examination - Vital Signs Temperature: 97.4 F Blood Pressure: 121/64 Pulse: 51 Respirations: 14 Pulse Ox (%): 95 - Physical Exam General: Alert, In no apparent distress, Oriented x3 HEENT: Atraumatic, PERRLA, Mucous membr. moist/pink, EOMI, Sclerae nonicteric Neck: Supple, JVD not distended Respiratory: Clear to auscultation bilaterally, Normal air movement Cardiovascular: No edema, Regular rate/rhythm, Normal S1 S2, No gallops, No rubs, No murmurs Gastrointestinal: Normal bowel sounds, Soft and benign, Non-distended, No t enderness, No rebound, No guarding Musculoskeletal: No clubbing Integumentary: No rashes Neurological: Normal speech, Cranial nerves 3-12 intact, Normal affect - Studies Medications List Reviewed: Yes Assessment And Plan - Plan # High-Grade Partial Small Bowel Obstruction # History of Ileocecal Resection - General Surgery consulted and spoke with Dr. Sullivan - recommendations appreciated - NPO - start clear liquid diet and advance as tolerated - Possible discharge this afternoon or tomorrow morning based on ability to tolerate diet - Symptomatic management # Hypertension # Dyslipidemia - Resume home meds if tolerating PO Dakota Castrejon M.D. Discharge Plan: Home Plan to discharge in: 24 Hours
[2022-02-18 12:42] LABS: Absolute Lymphocytes (CBC) 1.3 K/uL (0.7-4.9); Hematocrit 41.2 % (39.6-49.0); Lymphocytes % 13.7 % (15.3-44.8); MCV 97.9 fL (80-100); MPV 8.6 fL (7.6-11.3); RBC Red Blood Cell Count 4.21 M/uL (4.33-5.43)
[2022-02-18 12:54] LABS: Potassium 3.1 mmol/L (3.5-5.1)
[2022-02-18] MEDS ORDERED: HYDROMORPHONE HCL 0.5 MG/0.5 ML INJ IV PRN (18:56)
[2022-02-18] MEDS ORDERED: POTASSIUM CL SA 10 MEQ TAB PO ONE (19:00)
[2022-02-19 02:41] VITALS: O2SAT 95
[2022-02-19] MEDS: METRONIDAZOLE 500mg IVPB 500 MG/100 ML BAG IV SCH ×2 (04:48→12:00)
[2022-02-19 06:02] LABS: Absolute Lymphocytes (CBC) 1.5 K/uL (0.7-4.9); Hematocrit 40.9 % (39.6-49.0); Lymphocytes % 16.1 % (15.3-44.8); MCV 96.7 fL (80-100); MPV 8.4 fL (7.6-11.3); RBC Red Blood Cell Count 4.23 M/uL (4.33-5.43)
[2022-02-19 06:17] LABS: Phosphorus 1.6 mg/dL (2.5-4.9); Potassium 3.3 mmol/L (3.5-5.1)
[2022-02-19] MEDS ORDERED: POTASSIUM PHOS IN 0.9 % NACL 15 MMOL/250 ML BAG IV ONE (06:20)
[2022-02-19] MEDS: ENOXAPARIN 40 MG/0.4 ML SQ SCH (08:17)
--- NOTE | 2022-02-19 08:20 | P.DS ---
Admission Date: 02/16/22 Discharge Date: 02/19/22 Disposition: ROUTINE DISCHARGE Discharge Condition: GOOD Reason for Admission: Small bowel obstruction Consultations: 1. General Surgery Hospital Course: DIAGNOSES: # High-Grade Partial Small Bowel Obstruction # History of Ileocecal Resection # Hypertension # Dyslipidemia HOSPITAL COURSE: Mr. Gutierrez Cai is a pleasant 66 year old male with a past medical history significant for prior ileocecal resection, hypertension, and dyslipidemia who was admitted to the [facility] on 02/16/2022 for abdominal pain. He was admitted to the Medicine service. General Surgery was consulted and he was evaluated by Dr. Sullivan. A nasogastric tube was placed to low intermittent suction, with improvement of his symptoms. Over his hospitalization, he continued to improve symptomatically. He was started on a clear liquid diet and advanced to regular diet this morning. He reported complete resolution of his abdominal pain, nausea, and vomiting. KUB performed yesterday is suggestive of resolution of his bowel obstruction. He states that he feels well and would like to be discharged home. Dr. Sullivan has cleared him for discharge with an outpatient follow-up. On 02/19/2022, he was seen on morning rounds and deemed medically stable for discharge. He was discharged with instructions to schedule follow-up appointments with his PCP (Dr. Singh) in 3-5 days and with General Surgery (Dr. Sullivan) in 5-7 days. He was given the opportunity to ask questions and reported no further questions. Furthermore, all questions were answered to the best of my ability. Today, I personally spent 20 minutes on his case, of which greater than 50% of the time was spent in patient education, counseling, and coordination of care as described above. - Physical Exam General: Alert, In no apparent distress, Oriented x3 HEENT: Atraumatic, PERRLA, Mucous membr. moist/pink, EOMI, Sclerae nonicteric Neck: Supple, JVD not distended Respiratory: Clear to auscultation bilaterally, Normal air movement Cardiovascular: No edema, Regular rate/rhythm, Normal S1 S2, No gallops, No rubs, No murmurs Gastrointestinal: Normal bowel sounds, Soft and benign, Non-distended, No tenderness, No rebound, No guarding Musculoskeletal: No clubbing Integumentary: No rashes Neurological: Normal speech, Cranial nerves 3-12 intact, Normal affect Vital Signs/Physical Exam: Temp Pulse Resp BP Pulse Ox 97.9 F 52 18 142/82 H 95 02/19/22 08:00 02/19/22 08:00 02/19/22 08:00 02/19/22 08:00 02/19/22 08:00 Laboratory Data at Discharge: WBC 9.40 K/uL (4.3-10.9) 02/19/22 05:47 Hgb 14.2 g/dL (13.6-17.9) 02/19/22 05:47 Hct 40.9 % (39.6-49.0) 02/19/22 05:47 Plt Count 136 K/uL (152-406) L 02/19/22 05:47 Sodium 141 mmol/L (136-145) 02/19/22 05:47 Potassium 3.3 mmol/L (3.5-5.1) L 02/19/22 05:47 BUN 14 mg/dL (7-18) 02/19/22 05:47 Creatinine 0.99 mg/dL (0.55-1.3) 02/19/22 05:47 Glucose 116 mg/dL (74-106) H 02/19/22 05:47 Phosphorus 1.6 mg/dL (2.5-4.9) L 02/19/22 05:47 Magnesium 2.3 mg/dL (1.8-2.4) 02/17/22 05:31 Total Bilirubin 0.9 mg/dL (0.2-1.0) 02/17/22 05:31 AST 12 U/L (15-37) L 02/17/22 05:31 ALT 16 U/L (12-78) 02/17/22 05:31 Alkaline Phosphatase 101 U/L (45-117) 02/17/22 05:31 Lipase 50 U/L (73-393) L 02/16/22 02:40 Home Medications: RX: Atorvastatin Calcium [Lipitor] 80 mg PO BEDTIME #30 tab 03/17/18 RX: Aspirin [Aspirin EC 81 MG] 81 mg PO DAILY 10/22/18 RX: Lisinopril [Zestril] 20 mg PO DAILY 07/13/21 RX: Codeine/APAP [Tylenol #3*] 1 tab PO Q4H PRN #20 tab 07/20/21 Physician Discharge Instructions: 1. Please schedule a follow-up appointment with your PCP (Dr. Singh) in 3-5 days 2. Please schedule a follow-up appointment with General Surgery (Dr. Sullivan) in 5-7 days Diet: Regular Activity: Ad barbie Followup: Manolo Singh, DO [Primary Care Provider] - Mohit Sullivan MD [ACTIVE - CAN ADMIT] - Time spent managing pt's care (in minutes): 20
[2022-02-19 11:29] VITALS: BP 120/69; TEMP 97.6
--- NOTE | 2022-02-19 11:40 | PN ---
Date of Progress Note: 02/19/2022 Subjective: The patient is awake, alert, tolerating diet, had a bowel movement. Passing gas with no abdominal pain. Objective: Vital Signs: Stable, afebrile. Abdomen: Benign. Assessment: Small bowel obstruction, resolved. Recommendations: The patient cleared from Surgery for discharge. He does have a low phosphorus, whi ch is being replaced after which he will be discharged to home. Follow up in my office p.r.n. The p atient was encouraged to eat small frequent meals. /MODL Voice ID: [id number] Report ID: [id number]
[2022-02-19 11:43] LABS: Phosphorus 2.6 mg/dL (2.5-4.9); Potassium 3.4 mmol/L (3.5-5.1)
[2022-02-19] MEDS ORDERED: POTASSIUM CL SA 10 MEQ TAB PO ONE (12:14)
--- NOTE | 2022-02-19 15:42 | EKG ---
Test Date: 2022-02-18 Test Time: 00:01:06 Spar Cap Beveler: KWAME MEASUREMENT RESULTS: Intervals: Rate: 37 [place]: 136 QRSD: 96 QT: 532 QTc: 417 [place]: P: 71 [place]: 136 QRS: 86 T: 82 INTERPRETIVE STATEMENTS: Marked sinus bradycardia Abnormal ECG Compared to ECG 07/12/2021 21:16:27 Sinus rhythm no longer present Prolonged QT interval no longer present Electronically Signed On 02-19-22 15:39:46 CDT by Jorge Zuleta
== END 2022-02-19 21:20 | disposition home or self-care (01) | DRG 390 ==
LOC: ER 01:22 → ERHOLD 10:11 → 4TH 12:59 → 2ND 02-18 20:37
PROVIDERS: ADMIT Hospitalist; ATTEND Internal Medicine
DX: K56.600 Partial intestinal obstruction, unspecified as to cause (principal); I10 Essential (primary) hypertension; E78.5 Hyperlipidemia, unspecified; F17.210 Nicotine dependence, cigarettes, uncomplicated; R14.3 Flatulence; Z79.82 Long term (current) use of aspirin; Z79.899 Other long term (current) drug therapy; Z20.822 Contact with and (suspected) exposure to COVID-19
CPT/HCPCS: 36415; 71045; 74019; 74177; 80048; 80053; 83690; 83735; 84100; 84132; 85025; 87811; 93005; 96374; 96375; 99284; J1650; J2270; J2543; J3480; J7030; J7050; Q9967

== ENCOUNTER 2024-09-24 14:26 | Emergency (ER) | payer OTHER ==
--- OUTSIDE RECORDS SUMMARY | 2024-09-24 14:32 | XMS REPORT | Continuity of Care Document ---
Author Name Unknown Address [address] [facility] [address] [place] [address] Organization [facility] [place] Address [address] [facility] [address] [place] [address] Care Team Providers Care Ripening Room Hand Name Role Phone IESHA SINGH Primary Care Physician Unavailab Iesha Vang Attending Clinician Unavailable ELLEN BOYD Attending Clinician Unavailable ELLEN BOYD Attending Clinician Unavailable IVANNA LYON Attending Clinician UnavailIvanna Medrano Attending Clinician [phone] Doctor Unassigned, [place] Attending Clinician U Michelle Ramos MD Attending Clinician MICHELLE FINCH Attending Clinician Unavailable Pob, [facility] Attending Clinician UnavailMAGALIS Boyd Attending Clinician UnavailELLEN Genao Admitting Clinician Unavailable MICHELLE FINCH Admitting Clinician Unavailable Payers Payer Name Policy Type Policy Number Effective Date Expirati on Date Source [facility] Stylewhile NANUET [id number] 2019 00:00:00 [facility] Allr ing Medicare Replace [id number] 2019 00:00:00 [facility] ALLIED BENEFIT [id number] 2019 00:00:00 Problems Condition Name Condition Details Condition Category Status Onset Date Resolution Date Last Treatment Date Treating Clinician Comments Source Allergic rhinitis Non-season al allergic rhinitis, unspecifie d trigger Problem [facility] [id number] Folate deficiency Problem [facility] [id number] Non-hemorr hagic cerebrovas cular accident (CVA) Problem [facility] [id number] Tobacco use disorder, continuous Problem [facility] [id number] Malignant neoplasm of urinary bladder, unspecifie d site Problem [facility] [id number] Mixed hyperlipid emia Problem [facility] 75999657 Thoracic aortic aneurysm without rupture Problem [facility] 21501634 HTN, goal below 140/90 Problem [facility] [id number] Lesion of bladder Problem [facility] [id number] 107 Coronary artery disease involving [place] coronary artery of [place] heart, angina presence unspecifie d Problem [facility] 35608277 Chronic obstructiv e pulmonary disease, unspecifie d COPD type Problem [facility] [id number] Lumbar radiculopa thy, right Problem [facility] [id number] Sciatica of right side Problem [facility] [id number] Paresthesi a of right leg Problem [facility] [id number] H/O partial resection of colon Problem [facility] Allergies, Adverse Reactions, Alerts Allergy Name Allergy Type Status Severity Reaction(s) Onset Date Inactive Date Treating Clinician Comments Source NO KNOWN ALLERGIE S Drug Class Active [facility] Social History Social Habit Start Date Stop Date Quantity Comments Source History of tobacco use Passive smoker [facility] Gender identity [facility] Cigarettes smoked current (pack per day) - Reported 2023-08-12 00:00:00 2023-08-12 00:00:00 [facility] Cigarette pack-years 2023-08-12 00:00:00 2023-08-12 00:00:00 [facility] Tobacco use and exposure 2023-08-12 00:00:00 2023-08-12 00:00:00 Smokeless tobacco non-user [facility] History of Social function 2023-08-12 00:00:00 2023-08-12 00:00:00 [facility] Sex Assigned At 1955 00:00:00 1955 00:00:00 [facility] Smoking Status Start Date Stop Date Source Tobacco smoking consumption unknown [facility] Never Smoker [facility] Smokes tobacco daily 2023-08-12 00:00:00 [facility] Medications Ordered Medication Name Filled Medication Name Start Date Stop Date Current Medication? Ordering Clinician Indication Dosage Frequency Signature (SIG) Comments Components Source Ketorolac 15mg Ketorolac 15mg 2023-06 0-30 00:00: 00 No 30mg [facility] Kenalog (Triamcinol one) Kenalog (Triamcinol one) 2023-06 0-30 00:00: 00 No 40mg [facility] cephALEXin 500 mg capsule 08-13 00:00: 00 08-19 04:59 :00 No [id number] 500mg Take 1 capsule by mouth 4 (four) times daily for 5 days. [facility] mg EC tablet 08-11 10:50: 50 Yes 81mg Take 1 tablet by mouth in the morning. [facility] iopamidol (ISOVUE 370-500 mL) injection 100 mL 07-21 19:45: 00 07-21 18:58 :00 No [id number] 100mL 100 mL, Intravenou s, ONCE, 1 dose, On Fri07/21/23 at 1345, Routine [facility] lisinop[facility]L 20 mg tablet 2022-06 0 00:00: 00 Yes 20mg Take 1 tablet by mouth in the morning. [facility] traMADol 50 mg tablet 12-11 00:00: 00 Yes [id number] 50mg Take 1 tablet by mouth every 6 (six) hours as needed (pain). [facility] proMETHazin e 25 mg tablet 12-11 00:00: 00 Yes [id number] 25mg Take 1 tablet by mouth every 6 (six) hours as needed for Nausea and Vomiting (N/V). [facility] methocarbam ol (ROBAXIN) 500 mg tablet 02-18 00:00: 00 Yes [id number] 500mg Take 1 tablet by mouth 4 (four) times daily. [facility] ibuprofen 600 mg tablet 02-18 00:00: 00 Yes [id number] 600mg Take 1 tablet by mouth every 6 (six) hours as needed for Alternate with [place] for pain scale 1-3. [facility] Atorvastati n Calcium 80 MG Atorvastati n Calcium 80 MG No 1{table t} QD Atorvastat in Calcium 80 MG Lisinopril 20 MG Lisinopril 20 MG No 1{table t} QD Lisinopril 20 MG Aspir-81 81 MG Aspir-81 81 MG No 1{table t} QD Aspir-81 81 MG Cyclobenzap rine HCl 5 MG Cyclobenzap rine HCl 5 MG No 1{table t_at_be dtime_a s_neede d} QD Cyclobenza mariluz HCl 5 MG Immunizations Ordered Immunization Name Filled Immunization Name Date Status Comments Source Prevnar 20 (PCV20) Prevnar 20 (PCV20) 2022-09-26 10:54:00 Completed [facility] PNEUMAVAX 23 PNEUMAVAX 2018-06-30 11:22:00 Completed [facility] Adacel (Tdap) Adacel (Tdap) 2018-06-30 11:22:00 Completed [facility] PNEUMAVAX 23 PNEUMAVAX 2018-06-30 11:22:00 Completed [facility] Adacel (Tdap) Adacel (Tdap) 2018-06-30 11:22:00 Completed [facility] PNEUMAVAX 23 PNEUMAVAX 2018-06-30 11:22:00 Completed [facility] Adacel (Tdap) Adacel (Tdap) 2018-06-30 11:22:00 Completed [facility] PNEUMAVAX 23 PNEUMAVAX 23 2018-06-30 11:22:00 Completed [facility] Adacel (Tdap) Adacel (Tdap) 2018-06-30 11:22:00 Completed [facility] Adacel (Tdap) Adacel (Tdap) 2018-06-30 00:00:00 Completed [facility] PNEUMAVAX 23 PNEUMAVAX 23 2018-06-30 00:00:00 Completed [facility] Prevnar 20 (PCV20) Prevnar 20 (PCV20) Unknown Completed [facility] PNEUMAVAX 23 PNEUMAVAX 23 Unknown Completed Comm on [facility] Adacel (Tdap) Adacel (Tdap) Unknown Completed Co [facility] Prevnar 20 (PCV20) Prevnar 20 (PCV20) Unknown Completed [facility] PNEUMAVAX 23 PNEUMAVAX 23 Unknown Completed Comm on [facility] Adacel (Tdap) Adacel (Tdap) Unknown Completed [facility] Prevnar 20 (PCV20) Prevnar 20 (PCV20) Unknown Completed [facility] PNEUMAVAX 23 PNEUMAVAX 23 Unknown Completed Comm on [facility] Adacel (Tdap) Adacel (Tdap) Unknown Completed Co [facility] Prevnar 20 (PCV20) Prevnar 20 (PCV20) Unknown Completed [facility] PNEUMAVAX 23 PNEUMAVAX 23 Unknown Completed Comm on [facility] Adacel (Tdap) Adacel (Tdap) Unknown Completed Co [facility] Prevnar 20 (PCV20) Prevnar 20 (PCV20) Unknown Completed [facility] PNEUMAVAX 23 PNEUMAVAX 23 Unknown Completed [facility] on [facility] Adacel (Tdap) Adacel (Tdap) Unknown Completed Co [facility] Prevnar 20 (PCV20) Prevnar 20 (PCV20) Unknown Completed [facility] PNEUMAVAX 23 PNEUMAVAX 23 Unknown Completed Comm on [facility] Adacel (Tdap) Adacel (Tdap) Unknown Completed [facility] Fluad (IIV) - SDS - 0.5mL Fluad (IIV) - SDS - 0.5mL Unknown Completed [facility] Vital Signs Vital Name Observation Time Observation Value Comments S robce height 2024-06-08 10:45:00 69 [in_i] Commo n [facility] weight 2024-06-08 10:45:00 128.8 [lb_av] Co [facility] temperature 2024-06-08 10:45:00 97.5 [degF] Com [facility] bmi 2024-06-08 10:45:00 19.02 kg/m2 Comm on [facility] oximetry 2024-06-08 10:45:00 94 % Commo n [facility] respiratory rate 2024-06-08 10:45:00 17 /min [facility] blood pressure systolic 2024-06-08 10:45:00 122 mm[Hg] [facility] blood pressure diastolic 2024-06-08 10:45:00 72 mm[Hg] [facility] height 2024-06-08 11:00:00 69 [in_i] Commo n [facility] weight 2024-06-08 11:00:00 128.8 [lb_av] Co [facility] temperature 2024-06-08 11:00:00 97.5 [degF] Com [facility] bmi 2024-06-08 11:00:00 19.02 kg/m2 Comm on [facility] oximetry 2024-06-08 11:00:00 99 % Commo n [facility] blood pressure systolic 2024-06-08 11:00:00 122 mm[Hg] [facility] blood pressure diastolic 2024-06-08 11:00:00 72 mm[Hg] [facility] height 2024-04-07 13:40:00 69 [in_i] Commo n [facility] weight 2024-04-07 13:40:00 138 [lb_av] Comm on [facility] temperature 2024-04-07 13:40:00 97.5 [degF] Com mon [facility] bmi 2024-04-07 13:40:00 20.38 kg/m2 Comm on [facility] oximetry 2024-04-07 13:40:00 98 % [facility]mo [facility] respiratory rate 2024-04-07 13:40:00 18 /min [facility] blood pressure systolic 2024-04-07 13:40:00 123 mm[Hg] [facility] blood pressure diastolic 2024-04-07 13:40:00 79 mm[Hg] [facility] Systolic blood pressure 2023-08-12 16:45:00 131 mm[Hg] [facility] Diastolic blood pressure 2023-08-12 16:45:00 93 mm[Hg] [facility] Heart rate 2023-08-12 16:45:00 102 /min [facility] Oxygen saturation in Arterial blood by Pulse oximetry 2023-08-12 16:45:00 97 /min [facility] Body temperature 2023-08-12 16:44:00 36.94 Carmelina [facility] Respiratory rate 2023-08-12 16:44:00 18 /min [facility] Body height 2023-08-12 16:44:00 180.3 cm [facility] Body weight 2023-08-12 16:44:00 61.508 kg [facility] BMI 2023-08-12 16:44:00 18.91 kg/m2 [facility] Systolic blood pressure 2023-07-01 14:38:00 127 mm[Hg] [facility] Diastolic blood pressure 2023-07-01 14:38:00 80 mm[Hg] [facility] Heart rate 2023-07-01 14:38:00 87 /min [facility] Body temperature 2023-07-01 14:38:00 36.83 Carmelina [facility] Respiratory rate 2023-07-01 14:38:00 18 /min [facility] Body height 2023-07-01 14:38:00 180.3 cm [facility] Body weight 2023-07-01 14:38:00 64.411 kg [facility] BMI 2023-07-01 14:38:00 19.80 kg/m2 [facility] Oxygen saturation in Arterial blood by Pulse oximetry 2023-07-01 14:38:00 97 /min [facility] Systolic blood pressure 2023-04-22 20:16:00 130 mm[Hg] [facility] Diastolic blood pressure 2023-04-22 20:16:00 84 mm[Hg] [facility] Heart rate 2023-04-22 20:16:00 86 /min [facility] Body temperature 2023-04-22 20:16:00 36.78 Carmelina [facility] Respiratory rate 2023-04-22 20:16:00 18 /min [facility] Body height 2023-04-22 20:16:00 180.3 cm [facility] Body weight 2023-04-22 20:16:00 64.365 kg [facility] BMI 2023-04-22 20:16:00 19.79 kg/m2 [facility] Oxygen saturation in Arterial blood by Pulse oximetry 2023-04-22 20:16:00 99 /min [facility] height 2023-03-06 08:40:00 69 [in_i] [facility] weight 2023-03-06 08:40:00 135.6 [lb_av] Co [facility] temperature 2023-03-06 08:40:00 97.9 [degF] Com mon [facility] bmi 2023-03-06 08:40:00 20.02 kg/m2 Comm on [facility] oximetry 2023-03-06 08:40:00 98 % Commo n [facility] respiratory rate 2023-03-06 08:40:00 16 /min [facility] blood pressure systolic 2023-03-06 08:40:00 138 mm[Hg] Common [facility] blood pressure diastolic 2023-03-06 08:40:00 80 mm[Hg] [facility] height 2023-01-27 11:10:00 69 [in_i] Commo n [facility] weight 2023-01-27 11:10:00 137.0 [lb_av] Co mmon [facility] temperature 2023-01-27 11:10:00 97.8 [degF] Com [facility] bmi 2023-01-27 11:10:00 20.23 kg/m2 Comm on [facility] oximetry 2023-01-27 11:10:00 95 % Commo n [facility] respiratory rate 2023-01-27 11:10:00 17 /min [facility] blood pressure systolic 2023-01-27 11:10:00 116 mm[Hg] Common [facility] blood pressure diastolic 2023-01-27 11:10:00 72 mm[Hg] [facility] height 2022-09-26 10:30:00 69 [in_i] Commo n [facility] weight 2022-09-26 10:30:00 141.2 [lb_av] Co [facility] temperature 2022-09-26 10:30:00 97.1 [degF] Com mon [facility] bmi 2022-09-26 10:30:00 20.85 kg/m2 Comm on [facility] oximetry 2022-09-26 10:30:00 97 % Commo n [facility] respiratory rate 2022-09-26 10:30:00 16 /min [facility] blood pressure systolic 2022-09-26 10:30:00 125 mm[Hg] [facility] blood pressure diastolic 2022-09-26 10:30:00 74 mm[Hg] Common [facility] height 2022-09-26 10:40:00 69 [in_i] Commo n [facility] weight 2022-09-26 10:40:00 141.2 [lb_av] Co [facility] temperature 2022-09-26 10:40:00 97.1 [degF] Com [facility] bmi 2022-09-26 10:40:00 20.85 kg/m2 Comm on [facility] oximetry 2022-09-26 10:40:00 97 % Commo n [facility] respiratory rate 2022-09-26 10:40:00 16 /min [facility] blood pressure systolic 2022-09-26 10:40:00 125 mm[Hg] [facility] blood pressure diastolic 2022-09-26 10:40:00 74 mm[Hg] [facility] height 2022-05-27 10:20:00 69 [in_i] Commo n [facility] weight 2022-05-27 10:20:00 137.3 [lb_av] Co [facility] temperature 2022-05-27 10:20:00 96.8 [degF] Com [facility] bmi 2022-05-27 10:20:00 20.27 kg/m2 Comm on [facility] oximetry 2022-05-27 10:20:00 98 % Commo n [facility] respiratory rate 2022-05-27 10:20:00 18 /min [facility] blood pressure systolic 2022-05-27 10:20:00 131 mm[Hg] Common [facility] blood pressure diastolic 2022-05-27 10:20:00 74 mm[Hg] Common [facility] height 2022-02-26 09:00:00 69 [in_i] Commo n [facility] weight 2022-02-26 09:00:00 141.9 [lb_av] Co [facility] temperature 2022-02-26 09:00:00 97.5 [degF] Com [facility] bmi 2022-02-26 09:00:00 20.95 kg/m2 Comm on [facility] oximetry 2022-02-26 09:00:00 99 % Commo n [facility] respiratory rate 2022-02-26 09:00:00 16 /min [facility] blood pressure systolic 2022-02-26 09:00:00 137 mm[Hg] Common [facility] blood pressure diastolic 2022-02-26 09:00:00 87 mm[Hg] Common [facility] height 2022-01-25 10:10:00 69 [in_i] Commo n [facility] weight 2022-01-25 10:10:00 137.9 [lb_av] Co on [facility] temperature 2022-01-25 10:10:00 97.9 [degF] Com [facility] bmi 2022-01-25 10:10:00 20.36 kg/m2 Comm on [facility] oximetry 2022-01-25 10:10:00 99 % Commo n [facility] respiratory rate 2022-01-25 10:10:00 16 /min [facility] blood pressure systolic 2022-01-25 10:10:00 137 mm[Hg] Common [facility] blood pressure diastolic 2022-01-25 10:10:00 83 mm[Hg] Common [facility] height 2021-10-25 10:30:00 71 [in_i] Commo n [facility] weight 2021-10-25 10:30:00 136.4 [lb_av] Co mmon [facility] temperature 2021-10-25 10:30:00 97.6 [degF] Com mon [facility] bmi 2021-10-25 10:30:00 19.02 kg/m2 Comm on [facility] oximetry 2021-10-25 10:30:00 96 % Commo n [facility] respiratory rate 2021-10-25 10:30:00 16 /min [facility] blood pressure systolic 2021-10-25 10:30:00 137 mm[Hg] Common [facility] blood pressure diastolic 2021-10-25 10:30:00 82 mm[Hg] Common [facility] height 2021-10-25 10:40:00 71 [in_i] Commo n [facility] weight 2021-10-25 10:40:00 136.4 [lb_av] Co mmon [facility] temperature 2021-10-25 10:40:00 97.6 [degF] Com mon [facility] bmi 2021-10-25 10:40:00 19.02 kg/m2 Comm on [facility] oximetry 2021-10-25 10:40:00 96 % Commo n [facility] respiratory rate 2021-10-25 10:40:00 16 /min [facility] blood pressure systolic 2021-10-25 10:40:00 137 mm[Hg] Common [facility] blood pressure diastolic 2021-10-25 10:40:00 82 mm[Hg] Common [facility] height 2021-07-27 08:40:00 71 [in_i] Commo n [facility] weight 2021-07-27 08:40:00 138.1 [lb_av] Co mmon [facility] temperature 2021-07-27 08:40:00 97.3 [degF] Com mon [facility] bmi 2021-07-27 08:40:00 19.26 kg/m2 Comm on [facility] oximetry 2021-07-27 08:40:00 100 % Commo n [facility] respiratory rate 2021-07-27 08:40:00 18 /min [facility] blood pressure systolic 2021-07-27 08:40:00 132 mm[Hg] Common [facility] blood pressure diastolic 2021-07-27 08:40:00 76 mm[Hg] Common [facility] height 2021-04-19 09:40:00 71 [in_i] Commo n [facility] weight 2021-04-19 09:40:00 150 [lb_av] Comm on [facility] temperature 2021-04-19 09:40:00 98.4 [degF] Com mon [facility] bmi 2021-04-19 09:40:00 20.92 kg/m2 Comm on [facility] blood pressure systolic 2021-04-19 09:40:00 128 mm[Hg] Common [facility] blood pressure diastolic 2021-04-19 09:40:00 72 mm[Hg] [facility] Procedures Procedure Date / Time Performed Performing Clinician Source NIMISHA,POST-VOID RES,US,NON-IMAGING 2023-08-12 17:08:00 Ivanna Lyon [facility] POCT URINALYSIS AUTO 2023-08-12 17:03:00 Corine Lyon [facility] PATIENT QUESTIONNAIRE 2023-08-12 06:01:00 Doctor Unassigned, [place] [facility] DISCLOSURE AND CONSENT, MEDICAL AND SURGICAL PROCEDURES 2023-07-04 06:01:00 Doctor Unassigned, [place] [facility] POCT URINALYSIS AUTO 2023-07-01 14:20:00 Kelsey Finch [facility] NIMISHA,POST-VOID RES,US,NON-IMAGING 2023-07-01 00:00:00 Michelle Finch [facility] POCT URINALYSIS AUTO 2023-04-22 20:14:00 Kelsey Finch [facility] ASSIGNMENT OF BENEFITS 2023-04-22 19:35:54 Docto r Unassigned, [place] [facility] REFERRAL- REQUEST/RESPONSE 2023-01-29 05:01:00 Doctor Unassigned, [place] [facility] Encounters Start Date/Time End Date/Time Encounter Type Admission Type Attending [facility] Facility Care Department Encounter ID Source 2024-04-05 11:11:00 Out[facility] [id number] [facility] 2023-03-04 11:13:00 Outpatient Singh, [facility] [id number] [facility] 2022-05-23 14:59:00 Outpatient Singh, [facility] [id number] [facility] 2021-07-27 08:34:00 Outpatient Singh, [facility] [id number] [facility] 2021-07-04 13:36:52 [facility] [id number] [facility] 2021-07-04 13:08:54 Out[facility] [id number] [facility] 2021-07-04 12:29:43 Out[facility] [id number] [facility] 2021-07-04 11:43:59 Out[facility] [id number] [facility] 2021-07-04 11:36:17 Outpatient Singh, Iesha [facility] [id number] [facility] 2021-07-04 11:32:53 Outpatient Singh, Iesha [facility] [id number] [facility] 2021-07-04 11:25:32 Outpatient Singh, Iesha [facility] [id number] [facility] 2021-07-04 11:13:36 Outpatient Singh, Iesha [facility] [id number] [facility] 2024-08-19 00:00:00 2024-08-19 00:00:00 (TEL) [facility] [id number] [facility] 2024-08-11 00:00:00 2024-08-11 00:00:00 (TEL) [facility] [id number] [facility] 2024-07-20 00:00:00 2024-07-20 00:00:00 (TEL) [facility] [id number] [facility] 2024-06-30 00:00:00 2024-06-30 00:00:00 (TEL) [facility] [id number] [facility] 2024-06-25 00:00:00 2024-06-25 00:00:00 (TEL) [facility] [id number] [facility] 2024-06-08 00:00:00 2024-06-08 00:00:00 OFFICE VISIT ESTAB PT LEVEL 4 [facility] [id number] [facility] 2024-06-08 00:00:00 2024-06-08 00:00:00 (TEL) [facility] [id number] [facility] [facility]-08 00:00:00 2024-06-08 00:00:00 SUB ANNUAL [facility] WELLNESS VISIT [facility] [id number] [facility] 2024-04-07 00:00:00 2024-04-07 00:00:00 OFFICE [facility] [id number] [facility] 2024-04-05 00:00:00 2024-04-05 00:00:00 [facility] [id number] [facility] 2024-04-02 13:58:00 2024-04-02 16:05:00 Emergency X DEB, ELLEN BOYD, ELLEN RUST ERT [id number] [facility] 2024-04-02 00:00:00 2024-04-02 00:00:00 [facility] [id number] [facility] 2023-10-14 09:00:00 2023-10-14 09:00:00 [facility] [id number] [facility] 2023-08-14 00:00:00 2023-08-14 00:00:00 [facility] 1.2.840.114 350.1.13.10 4.2.7.2.686 [id number] [facility] 2023-08-12 10:30:00 2023-08-12 11:05:31 [facility] [id number] [facility] 2023-08-12 10:30:00 2023-08-12 11:05:31 Office [facility] 1.2.840.114 350.1.13.10 4.2.7.2.686 [id number] [facility] 2023-08-12 00:00:00 2023-08-12 00:00:00 Orders Only Doctor Unassigned, [place] [facility] 1.2840.114 350.1.13.10 4.2.7.2.686 [id number] [id number] [facility] 2023-07-28 00:00:00 2023-07-28 00:00:00 [facility] 1.2840.114 350.1.13.10 4.2.7.2.686 [id number] [facility] 2023-07-21 11:48:15 2023-07-21 23:59:00 [facility] [id number] [facility] 2023-07-21 11:48:15 2023-07-21 23:59:00 Hospital Encounter [facility] 1.2840.114 350.1.13.10 4.2.7.2.686 [id number] [facility] 2023-07-04 00:00:00 2023-07-04 00:00:00 [facility] [id number] [facility] 2023-07-04 00:00:00 2023-07-04 00:00:00 Orders Only Doctor Unassigned, [place] [facility] 1.2840.114 350.1.13.10 4.2.7.2.686 [id number] [id number] [facility] 2023-07-01 08:30:00 2023-07-01 09:41:45 [facility] 1.20.114 350.1.13.10 4.2.7.2.686 [id number] [facility] 2023-07-01 08:30:00 2023-07-01 09:41:45 [facility] [id number] [facility] 2023-06-27 00:00:00 2023-06-27 00:00:00 Telephone [facility] 1.2.840.114 350.1.13.10 4.2.7.2.686 [id number] [facility] 2023-06-27 00:00:00 2023-06-27 00:00:00 Telephone [facility] 1.2.840.114 350.1.13.10 4.2.7.2.686 [id number] [facility] 2023-06-20 09:00:00 2023-06-20 09:15:00 [employer]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, [facility] Main [facility] 1.2.840.114 350.1.13.10 4.2.7.2.686 [id number] [facility] 2023-06-20 09:00:00 2023-06-20 09:00:00 Outpatient R [facility] [id number] [facility] 2023-06-11 00:00:00 2023-06-11 00:00:00 Telephone [facility] 1.2.840.114 350.1.13.10 4.2.7.2.686 [id number] [facility] 2023-04-22 15:00:00 2023-04-22 15:24:22 Outpatient R [facility] [id number] [facility] 2023-04-22 15:00:00 2023-04-22 15:24:22 Office Visit [facility] 1.2.840.114 350.1.13.10 4.2.7.2.686 [id number] [facility] 2023-04-22 00:00:00 2023-04-22 00:00:00 Orders Only Doctor Unassigned, [place] [facility] 1.2.840.114 350.1.13.10 4.2.7.2.686 [id number] [facility] 2023-03-06 00:00:00 2023-03-06 00:00:00 OFFICE VISIT ESTAB PT LEVEL 3 [facility] [id number] [facility] 2023-03-04 00:00:00 2023-03-04 00:00:00 (TEL) [facility] [id number] [facility] 2023-01-29 00:00:00 2023-01-29 00:00:00 Orders Only Doctor Unassigned, [place] [facility] 1.2.840.114 350.1.13.10 4.2.7.2.686 [id number] [id number] [facility] 2023-01-27 00:00:00 2023-01-27 00:00:00 OFFICE VISIT ESTAB PT LEVEL 4 [facility]C STL[facility] [id number] [facility] 2022-12-17 00:00:00 2022-12-17 00:00:00 (TEL) STLMLC ST[facility] [id number] [facility] 2022-09-26 00:00:00 2022-09-26 00:00:00 OFFICE VISIT ESTAB PT LEVEL 4 [facility]C STL[facility]C [id number] [facility] 2022-09-26 00:00:00 2022-09-26 00:00:00 SUB ANNUAL [facility] WELLNESS VISIT STL[facility] ST[facility] [id number] [facility] 2022-05-27 00:00:00 2022-05-27 00:00:00 OFFICE VISIT ESTAB PT LEVEL 4 [facility]C STL[facility]C [id number] [facility] 2022-02-26 00:00:00 2022-02-26 00:00:00 (HOSP F/U) Hospital Follow Up STLMLC STLMLC [id number] [facility] 2022-02-20 00:00:00 2022-02-20 00:00:00 (TEL) STLMLC STLMLC [id number] [facility] 2022-01-25 00:00:00 2022-01-25 00:00:00 OFFICE VISIT ESTAB PT LEVEL 4 STLMLC STLMLC [id number] [facility] 2021-10-25 00:00:00 2021-10-25 00:00:00 OFFICE VISIT ESTAB PT LEVEL 4 [facility]C STLMLC [id number] [facility] 2021-10-25 00:00:00 2021-10-25 00:00:00 SUB ANNUAL [facility] WELLNESS VISIT STLMLC STLMLC [id number] [facility] 2021-07-27 00:00:00 2021-07-27 00:00:00 OFFICE VISIT ESTAB PT LEVEL 4 [facility]C STLMLC [id number] [facility] 2021-04-19 00:00:00 2021-04-19 00:00:00 OFFICE VISIT ESTAB PT LEVEL 4 [facility]C STL[facility]C [id number] [facility] 2021-01-17 00:00:00 2021-01-17 00:00:00 Outpatient STLMLC STL[facility] [id number] [facility] 2020-11-21 00:00:00 2020-11-21 00:00:00 Outpatient [facility] ST[facility] [id number] [facility] 2020-08-28 00:00:00 2020-08-28 00:00:00 Outpatient [facility] ST[facility] [id number] [facility] 2020-06-19 00:00:00 2020-06-19 00:00:00 Outpatient STLMLC ST[facility] [id number] [facility] 2020-06-15 00:00:00 2020-06-15 00:00:00 Outpatient [facility] ST[facility] [id number] [facility] 2020-01-17:30:00 2020-01-17 10:30:00 [facility] [id number] [facility] 2020-01-04 09:00:00 2020-01-04 09:00:00 [facility] [id number] [facility] 2020-01-03 09:23:00 2020-01-03 09:23:00 [facility] [id number] [facility] 2019-12-22 13:30:00 2019-12-22 13:30:00 [facility] [id number] [facility] 2019-12-22 10:21:00 2019-12-22 10:21:00 [facility] [address] [facility] [id number] [facility] 2019-12-12 13:08:29 2019-12-12 13:08:29 Emergency X MAGALIS ALMONTE RUST ERT [id number] [facility] 2019 14:19:00 2019 14:19:00 [facility] [id number] [facility] 2019-11-16 09:15:00 2019-11-16 09:15:00 [facility] [address] [facility] [id number] [facility] 2019-10-01 10:49:00 2019-10-01 10:49:00 [facility] [id number] [facility] 2019-05-24 11:30:00 2019-05-24 11:30:00 [facility] [address] [facility] [id number] [facility] 2019-04-30 09:00:00 2019-04-30 09:00:00 [facility] [id number] [facility] 2019-04-22 08:30:00 2019-04-22 08:30:00 [facility] [id number] [facility] 2019-03-25 14:40:00 2019-03-25 14:40:00 [facility] [id number] [facility] 2019-03-01 09:00:00 2019-03-01 09:00:00 [facility] [id number] [facility] 2018-10-12 11:00:00 2018-10-12 11:00:00 [facility] [id number] [facility] 2018-09-28 11:16:00 2018-09-28 11:16:00 [facility] [id number] [facility] 2018-09-24 10:49:00 2018-09-24 10:49:00 [facility] [id number] [facility] 2018-09-22 13:00:00 2018-09-22 13:00:00 [facility] [id number] [facility] 2018-09-08 09:43:00 2018-09-08 09:43:00 [facility] [id number] [facility] 2018-09-02 09:00:00 2018-09-02 09:00:00 [facility] [id number] [facility] 2018-08-21 10:45:00 2018-08-21 10:45:00 [facility] [id number] [facility] 2018-07-09 13:45:00 2018-07-09 13:45:00 [facility] [id number] [facility] 2018-06-30 11:00:00 2018-06-30 11:00:00 Outpatient [facility] [id number] [facility] Results Test Description Test Time Test Comments Results Result Co mments Source NIMISHA,POST-VOID RES,US,[id number] 17:08:00* Test Item Value Reference Range Interpretation Comme nts PVR (URINE VOLUME) (test code = 5193) 9 ml 0-100 Lab Interpretation (test cod e = 35486-5) [facility],US,[id number] 17:08:00* Test Item Value Reference Range Interpretation Comme nts PVR (URINE VOLUME) (test code = 5193) 9 ml 0-100 Lab Interpretation (test cod e = 59225-1) Normal [facility], [id number] 17:07:00 * Test Item Value Reference Range Interpretation Comme nts POCT U SP GRAV (test code = 3255) 1.030 mg/dl 1.005-1.025 A POCT PH U (test code = 3254) 5.5 mg/dl 5-8 POCT U LEUK EST (test code = 3263) Trace Negative - Negative A POCT U NIT (test code = 3262) Positive Negative - Negati ve A POCT U PROT (test code = 3259) Trace Negative - Negative A POCT U GLU (test code = 3256) Negative Negative - Negati ve POCT U KETONE (test code = 3258) Negative Negative - Negative POCT U UROBILI (test code = 3260) 0.2 mg/dl 0.2-1 POCT U BILI (test code = 3261) Small Negative - Negative A POCT U BLD (test code = 3257) Large Negative - Negati ve A POCT U COLOR (test code = 3266) Yellow POCT U APPEAR (test code = 3267) Clear Lab Interpretation (test cod e = 78993-4) Abnormal [facility] Urinalysis, [id number] 17:07:00 * Test Item Value Reference Range Interpretation Comme nts POCT U SP GRAV (test code = 3255) 1.030 mg/dl 1.005-1.025 A POCT PH U (test code = 3254) 5.5 mg/dl 5-8 POCT U LEUK EST (test code = 3263) Trace Negative - Negative A POCT U NIT (test code = 3262) Positive Negative - Negati ve A POCT U PROT (test code = 3259) Trace Negative - Negative A POCT U GLU (test code = 3256) Negative Negative - Negati ve POCT U KETONE (test code = 3258) Negative Negative - Negative POCT U UROBILI (test code = 3260) 0.2 mg/dl 0.2-1 POCT U BILI (test code = 3261) Small Negative - Negative A POCT U BLD (test code = 3257) Large Negative - Negati ve A POCT U COLOR (test code = 3266) Yellow POCT U APPEAR (test code = 3267) Clear Lab Interpretation (test cod e = 76715-3) Abnormal [facility] Urinalysis, [id number] 14:25:00 * Test Item Value Reference Range Interpretation Comme nts POCT U SP GRAV (test code = 3255) 1.025 mg/dl 1.005-1.025 POCT PH U (test code = 3254) 6.5 mg/dl 5-8 POCT U LEUK EST (test code = 3263) negative Negative - Negative POCT U NIT (test code = 3262) negative Negative - Negati ve POCT U PROT (test code = 3259) negative Negative - Negative POCT U GLU (test code = 3256) negative Negative - Negati ve POCT U KETONE (test code = 3258) negative Negative - Negative POCT U UROBILI (test code = 3260) 0.2 mg/dl 0.2-1 POCT U BILI (test code = 3261) negative Negative - Negative POCT U BLD (test code = 3257) moderate Negative - Negati ve POCT U COLOR (test code = 3266) yellow POCT U APPEAR (test code = 3267) clear [facility] Urinalysis, [id number] 14:25:00 * Test Item Value Reference Range Interpretation Comme nts POCT U SP GRAV (test code = 3255) 1.025 mg/dl 1.005-1.025 POCT PH U (test code = 3254) 6.5 mg/dl 5-8 POCT U LEUK EST (test code = 3263) negative Negative - Negative POCT U NIT (test code = 3262) negative Negative - Negati ve POCT U PROT (test code = 3259) negative Negative - Negative POCT U GLU (test code = 3256) negative Negative - Negati ve POCT U KETONE (test code = 3258) negative Negative - Negative POCT U UROBILI (test code = 3260) 0.2 mg/dl 0.2-1 POCT U BILI (test code = 3261) negative Negative - Negative POCT U BLD (test code = 3257) moderate Negative - Negati ve POCT U COLOR (test code = 3266) yellow POCT U APPEAR (test code = 3267) clear [facility] Urinalysis, [id number] 14:25:00 * Test Item Value Reference Range Interpretation Comme nts POCT U SP GRAV (test code = 3255) 1.025 mg/dl 1.005-1.025 POCT PH U (test code = 3254) 6.5 mg/dl 5-8 POCT U LEUK EST (test code = 3263) negative Negative - Negative POCT U NIT (test code = 3262) negative Negative - Negati ve POCT U PROT (test code = 3259) negative Negative - Negative POCT U GLU (test code = 3256) negative Negative - Negati ve POCT U KETONE (test code = 3258) negative Negative - Negative POCT U UROBILI (test code = 3260) 0.2 mg/dl 0.2-1 POCT U BILI (test code = 3261) negative Negative - Negative POCT U BLD (test code = 3257) moderate Negative - Negati ve POCT U COLOR (test code = 3266) yellow POCT U APPEAR (test code = 3267) clear [facility],POST-VOID RES,US,[id number] 00:00:00* Test Item Value Reference Range Interpretation Comme nts PVR (URINE VOLUME) (test code = 5193) 6 ml 0-100 [facility],POST-VOID RES,US,[id number] 00:00:00* Test Item Value Reference Range Interpretation Comme nts PVR (URINE VOLUME) (test code = 5193) 6 ml 0-100 [facility],POST-VOID RES,US,[id number] 00:00:00* Test Item Value Reference Range Interpretation Comme nts PVR (URINE VOLUME) (test code = 5193) 6 ml 0-100 [facility], [id number] 20:15:00 * Test Item Value Reference Range Interpretation Comme nts POCT U SP GRAV (test code = 3255) 1.025 mg/dl 1.005-1.025 POCT PH U (test code = 3254) 5.5 mg/dl 5-8 POCT U LEUK EST (test code = 3263) negative Negative - Negative POCT U NIT (test code = 3262) negative Negative - Negati ve POCT U PROT (test code = 3259) negative Negative - Negative POCT U GLU (test code = 3256) negative Negative - Negati ve POCT U KETONE (test code = 3258) negative Negative - Negative POCT U UROBILI (test code = 3260) 0.2 mg/dl 0.2-1 POCT U BILI (test code = 3261) negative Negative - Negative POCT U BLD (test code = 3257) moderate Negative - Negati ve POCT U COLOR (test code = 3266) yellow POCT U APPEAR (test code = 3267) clear [facility], [id number] 20:15:00 * Test Item Value Reference Range Interpretation Comme nts POCT U SP GRAV (test code = 3255) 1.025 mg/dl 1.005-1.025 POCT PH U (test code = 3254) 5.5 mg/dl 5-8 POCT U LEUK EST (test code = 3263) negative Negative - Negative POCT U NIT (test code = 3262) negative Negative - Negati ve POCT U PROT (test code = 3259) negative Negative - Negative POCT U GLU (test code = 3256) negative Negative - Negati ve POCT U KETONE (test code = 3258) negative Negative - Negative POCT U UROBILI (test code = 3260) 0.2 mg/dl 0.2-1 POCT U BILI (test code = 3261) negative Negative - Negative POCT U BLD (test code = 3257) moderate Negative - Negati ve POCT U COLOR (test code = 3266) yellow POCT U APPEAR (test code = 3267) clear [facility], [id number] 20:15:00 * Test Item Value Reference Range Interpretation Comme nts POCT U SP GRAV (test code = 3255) 1.025 mg/dl 1.005-1.025 POCT PH U (test code = 3254) 5.5 mg/dl 5-8 POCT U LEUK EST (test code = 3263) negative Negative - Negative POCT U NIT (test code = 3262) negative Negative - Negati ve POCT U PROT (test code = 3259) negative Negative - Negative POCT U GLU (test code = 3256) negative Negative - Negati ve POCT U KETONE (test code = 3258) negative Negative - Negative POCT U UROBILI (test code = 3260) 0.2 mg/dl 0.2-1 POCT U BILI (test code = 3261) negative Negative - Negative POCT U BLD (test code = 3257) moderate Negative - Negati ve POCT U COLOR (test code = 3266) yellow POCT U APPEAR (test code = 3267) clear [facility]/AUTO [id number] 00:00:00* Test Item Value Reference Range Interpretation Comme nts NUCLEATED RBCS (test code = 75354-3) 0.0 /100 WBC'S See_Comment [Automated messa ge] The system which generated this result transmitted reference range: 0.0 /100 WBC'S. The reference range was not used to interpret this result as normal/abnormal. ABSOLUTE EOSINOPHILS (test code = 33304-2) 0.31 K/UL See_Comment [Automated messa ge] The system which generated this result transmitted reference range: 0.00-0.50 K/UL. The reference range was not used to interpret this result as normal/abnormal. ABSOLUTE LYMPHOCYTES (test code = 55324-4) 1.44 K/UL See_Comment [Automated messa ge] The system which generated this result transmitted reference range: 1.00-4.00 K/UL. The reference range was not used to interpret this result as normal/abnormal. ABSOLUTE MONOCYTES (test code = 49887-3) 0.85 K/UL See_Comment [Automated messa ge] The system which generated this result transmitted reference range: 0.20-1.00 K/UL. The reference range was not used to interpret this result as normal/abnormal. ABSOLUTE NEUTROPHILS (test code = 00012-1) 5.63 K/UL See_Comment [Automated messa ge] The system which generated this result transmitted reference range: 1.50-7.50 K/UL. The reference range was not used to interpret this result as normal/abnormal. BASOPHILS (test code = 95570-5) 0.6 % EOSINOPHILS (test code = 54712-0) 3.7 % HEMATOCRIT (test code = 08976-6) 48.7 % See_Comment [Automated messa ge] The system which generated this result transmitted reference range: 40.0-51.0 %. The reference range was not used to interpret this result as normal/abnormal. HEMOGLOBIN (test code = 718-7) 16.6 G/DL See_Comment [Automated messa ge] The system which generated this result transmitted reference range: 13.5-17.0 G/DL. The reference range was not used to interpret this result as normal/abnormal. LYMPHOCYTES (test code = 68447-3) 17.3 % MCH (test code = 22877-3) 33.3 PG See_Comment H [Automated messa ge] The system which generated this result transmitted reference range: 25.0-33.0 PG. The reference range was not used to interpret this result as normal/abnormal. MCHC (test code = 38078-6) 34.1 G/DL See_Comment [Automated messa ge] The system which generated this result transmitted reference range: 31.0-36.0 G/DL. The reference range was not used to interpret this result as normal/abnormal. MCV (test code = 27406-0) 97.8 fL See_Comment [Automated messa ge] The system which generated this result transmitted reference range: 80.0-99.0 fL. The reference range was not used to interpret this result as normal/abnormal. MONOCYTES (test code = 44177-6) 10.2 % NEUTROPHILS (test code = 87160-3) 67.8 % PLATELET COUNT (test code = 48764-6) 130 K/UL See_Comment [Automated messa ge] The system which generated this result transmitted reference range: 130-400 K/UL. The reference range was not used to interpret this result as normal/abnormal. RBC (test code = 63597-5) 4.98 M/UL See_Comment [Automated messa ge] The system which generated this result transmitted reference range: 4.50-6.10 M/UL. The reference range was not used to interpret this result as normal/abnormal. RDW (test code = 59071-5) 14.2 % See_Comment [Automated messa ge] The system which generated this result transmitted reference range: 11.5-15.0 %. The reference range was not used to interpret this result as normal/abnormal. WBC (test code = 34772-5) 8.3 K/UL See_Comment [Automated messa ge] The system which generated this result transmitted reference range: 3.5-11.0 K/UL. The reference range was not used to interpret this result as normal/abnormal. Notes Date/Time Note Provider Source 2023-07-31 09:46:49 3rd attempt to contact patient with no answer. Letter mailed at this time. [facility] 2023-07-29 10:15:29 Attempted to contact patient with no answer, unable to leave voicemail at this time. [facility] 2023-07-28 10:00:43 Images from the original note were not included. Greer Romano RN 07/28/2023 10:00 AM TRIAGE TECHNICIAN Back to Top Telephone encounter created. Greer Romano RN 07/28/2023 10:00 AM TRIAGE TECHNICIAN Attempted to contact patient with no answer, unable to leave voicemail at this time. Michelle Finch MD 07/25/2023 4:31 PM TRIAGE TECHNICIAN Reassuring CT, no obvious signs of cancer related changes or urological cause for blood in the urine Recent cystoscopy was within normal limits for hematuria Pending MRI prostate for elevated PSA [facility] 2023-06-30 08:19:29 3rd attempt to contact patient with no answer, unable to leave voicemail at this time. Letter mailed at this time. [facility] 2023-06-27 16:22:19 2nd attempt to contact patient with no answer, unable to leave voicemail at this time. [facility] [employer] 2023-06-27 14:02:17 Images from the original note were not included. Greer Romano RN 06/27/2023 2:01 PM TRIAGE TECHNICIAN Back to Top Attempted to contact patient with no answer, unable to leave voicemail at this time. Telephone encounter created. Michelle Finch MD 06/27/2023 9:45 AM TRIAGE TECHNICIAN Elevated PSA PSA (ng/mL) Date Value 06/20/2023 6.02 (H) Plan MRI prostate to rule out prostate cancer related changes and possible MR guided biopsy RTC as scheduled for cysto [facility] 2023-06-27 09:45:39 Elevated PSA MRI prostate [facility] 2023-06-20 09:00:00 Images from the original note were not included. Venipuncture collection performed by clean technique on the left anticubitus. Total of 1 attempts were made. Slight pressure and a bandage/dressing were applied to the site(s). The patient experienced no complications. The following specimens were processed according to instructions and sent to [facility] per lab order on 06/20/2023 : LT BLUE SST 1 RED LAV 1 PPT DK GREEN (LiHep) DK GREEN (SodH) GUERRERO DK BLUE (K2) DK BLUE (S) ACD Blood Culture NIPT/NTD Patient has been identified by and name and was provided with cup, antiseptic towelette, and clean catch instructions. 1 urine specimen(s) sent. Unpreserved Urine Culture 1 Aptima tube Other urine [facility]
[2024-09-24 15:04] LABS: Absolute Basophils 0.1 K/uL (0-0.5); Absolute Eosinophils 0.4 K/uL (0-0.5); Absolute Lymphocytes (CBC) 0.9 K/uL (0.7-4.9); Absolute Monocytes 0.8 K/uL (0.1-1.3); Absolute Neutrophil 7.5 K/uL (1.8-8.0); Basophils % 0.5 % (0-1.3); Eosinophils % 3.9 % (0-4.4); Hematocrit 43.7 % (39.6-49.0); Hemoglobin 15.1 g/dL (13.6-17.9); Lymphocytes % 9.1 % (15.3-44.8); MCH 32.9 pg (27.0-35.0); MCHC 34.6 g/dL (32.0-36.0); MCV 95.1 fL (80-100); MPV 8.3 fL (7.6-11.3); Monocytes % 7.9 % (3.3-12.3); Neutrophils % 78.6 % (41.7-73.7); Nucleated Red Blood Cells % 0.1 % (0-0); Platelets 172 thou/uL (152-406); Red Cell Distribution Width 15.3 % (12.1-15.2)
[2024-09-24 15:17] LABS: AST/SGOT 11 U/L (15-37); Albumin 3.3 g/dL (3.4-5.0); Alkaline Phosphatase 106 U/L (45-117); Anion Gap 11.1 mEq/L (5.0-15.0); BUN Blood Urea Nitrogen 13 mg/dL (7-18); Bicarbonate 27 mEq/L (21-32); Bilirubin Total 0.4 mg/dL (0.2-1.0); Globulin 3.4 g/dL (2.3-3.5); Glomerular Filtration Rate 62 ml/min (=/>90); Glucose Level 110 mg/dL (74-106); Lipase 22 U/L (13-75); Potassium 3.1 mEq/L (3.5-5.1); Protein, Total 6.7 g/dL (6.4-8.2); Sodium Level 144 mEq/L (136-145)
[2024-09-24 15:18] LABS: ALT/SGPT < 14 U/L (16-61)
--- NOTE | 2024-09-24 16:20 | RAD REPORT ---
EXAMINATION: CT ABDOMEN AND PELVIS WITH CONTRAST CLINICAL INDICATION: Abdominal pain TECHNIQUE: CT abdomen and pelvis was performed, after the administration of 100 cc Isovue-300.. Sagit vipul and coronal reconstructions were obtained. One or more of the following dose reduction techniques were used: Automated exposure control, adjustment of the mA and kV according to patient si ze, and iterative reconstruction. Unless otherwise specified, incidental findings do not require dedicated imaging follow-up. [id number]. Oral contrast was not given which limits evaluation of bowel and appendix. COMPARISON: .2022 FINDINGS: Liver, spleen, pancreas, adrenals and right kidney appear unremarkable. Small left renal cyst. No evidence of diverticulitis. The wall of the proximal rectum appears mildly thickened. Chronic deformities of L2 and L4 vertebral bodies. Postsurgical changes in the region of the right colon/ileum.: No obstruction IMPRESSION: Apparent mild thickening of the wall of the proximal rectum. This could be secondary to incomplete di stention or inflammation.
--- NOTE | 2024-09-24 16:30 | EDPHYS ---
Physician Documentation [facility] Name: Gutierrez Cai Age: 68 yrs Sex: Male : 1955 Arrival Date: 09/24/2024 Time: 14:26 Bed 18 Private MD: ED Physician Aamir Storm HPI: 09/24 14:58 Chief Complaint: Diarrhea with watery stools. History of Present Illness: The patient eulalia presents with diarrhea characterized by completely watery stools. There is no presence of blood or mucus noted in the stool. The patient is visiting from [place] and reports not experiencing abdominal pain. The diarrhea has been ongoing for a while, prompting concern for potential dehydration or underlying infection. An antibiotic may be necessary, depending on lab results. The plan is to get an IV started and conduct belly labs to further investigate the cause of the symptoms. Review of Systems: - Gastrointestinal: Watery stools, no blood or mucus observed. - Abdominal pain: Reports not having. ROS otherwise negative. . Historical: - Allergies: 14:41 No Known Allergies; ld1 - PMHx: 14:41 bowel obstruction; Hypertensive disorder; Hypercholesterolemia; ld1 - PSHx: 14:41 abdominal surgery; ld1 - Immunization history:: Adult Immunizations up to date. - Infectious Disease History:: Denies. - Social history:: Smoking status: Patient denies any tobacco usage or history of. Exam: 14:58 Constitutional: This is a well developed, well nourished patient who is awake, alert, jr11 and in no acute distress. Head/Face: Normocephalic, atraumatic. Eyes: Extra-ocular motions intact. Lids and lashes normal. Conjunctiva and sclera are non-icteric and not injected. Cornea within normal limits. Periorbital areas with no swelling, redness, or edema. ENT: Nares patent. No nasal discharge, no septal abnormalities noted. Oropharynx with no redness, swelling, or masses, exudates, or evidence of obstruction, uvula midline. Mucous membranes moist. Chest/axilla: Normal chest wall appearance and motion. Nontender with no deformity. No lesions are appreciated. Cardiovascular: Regular rate and rhythm with a normal S1 and S2. No gallops, murmurs, or rubs. Normal PMI, no JVD. No pulse deficits. Respiratory: Lungs have equal breath sounds bilaterally, clear to auscultation and percussion. No rales, rhonchi or wheezes noted. No increased work of breathing, no retractions or nasal flaring. Abdomen/GI: diffuse abd pain Skin: Warm, dry with normal turgor. Normal color with no rashes, no lesions, and no evidence of cellulitis. Vital Signs: 14:41 BP 116 / 82; Pulse 87; Resp 16; Temp 98; Pulse Ox 98% ; ld1 16:11 BP 114 / 81; Pulse 72; Resp 16; Pulse Ox 97% on R/A; db MDM: 14:50 Medical Screening Exam initiated jr11 14:58 Differential diagnosis: Medical Decision Making: Given the complaint of watery jr11 diarrhea, differential diagnoses include gastroenteritis, food poisoning, irritable bowel syndrome, or a parasitic infection. Although less likely, life-threatening conditions such as severe dehydration, a bowel obstruction, or inflammatory bowel disease should also be considered. Laboratory tests including CBC and CMP will help in narrowing down the diagnosis and guide further management. Plan: - Initiate IV fluids to prevent dehydration. - Conduct belly labs, including CBC and CMP, to evaluate for infection or other abnormalities. - Administer antibiotics if indicated by lab results. - Monitor the patient for any changes or worsening of symptoms. - Provide supportive care and reassess as needed. 16:28 Data reviewed: radiologic studies, CT with concern for mild inflammation of the rectum, jr11 given the persistent diarrhea, will treat with Augmentin. No concern for obstruction at this time. ER warnings given all results explained.. 09/24 14:49 Order name: CBC with Diff; Complete Time: 15:21 [facility] 09/24 14:49 Order name: CMP; Complete Time: 15:21 09/24 14:49 Order name: Lipase; Complete Time: 15:21 [facility] 09/24 14:49 Order name: CT Abd/Pelvis - IV Contrast Only; Complete Time: 16:22 09/24 14:49 Order name: IV Saline Lock; Complete Time: 14:54 09/24 14:49 Order name: Labs collected and sent; Complete Time: 14:54 jr Administered Medications: No medications were administered Disposition Summary: 09/24/24 16:29 Discharge Ordered Notes: Location: Home [facility] Condition: Stable jr11 Diagnosis - Diarrhea, unspecified jr11 Discharge Instructions: - Discharge Summary Sheet jr11 - Food Choices to Help Relieve Diarrhea, Adult jr11 - Diarrhea, Adult jr11 Forms: - Medication Reconciliation Form jr11 - Antibiotic Education jr11 - Prescription Opioid Use jr11 - Patient Portal Instructions jr11 - Leadership Thank You Letter jr11 Prescriptions: - Augmentin 875-125 mg Oral tablet - take 1 tablet ORAL route every 12 hours for 10 days; 14 tablet; Refills: 0, jr11 Product Selection Permitted Signatures: Dispatcher [employer] Radha Kelly, RN RN ld1 Aamir Storm MD MD jr11
--- NOTE | 2024-09-24 16:30 | ER ---
Nurse's Notes [facility] Name: Gutierrez Cai Age: 68 yrs Sex: Male : 1955 Arrival Date: 09/24/2024 Time: 14:26 Bed 18 Private MD: Diagnosis: Diarrhea, unspecified Presentation: 09/24 14:41 Chief complaint: Patient states: DIARRHEA >1 WK. Coronavirus screen: At this time, the ld1 client does not indicate any symptoms associated with coronavirus-19. Ebola Screen: No symptoms or risks identified at this time. Initial Sepsis Screen: Does the patient meet any 2 criteria? No. Patient's initial sepsis screen is negative. Does the patient have a suspected source of infection? No. Patient's initial sepsis screen is negative. Risk Assessment: Do you want to hurt yourself or someone else? Patient reports no desire to harm self or others. Onset of symptoms is unknown. 14:41 Method Of Arrival: Ambulatory ld1 14:41 Acuity: JEANETTE 3 ld1 Triage Assessment: 14:41 General: Appears in no apparent distress. Behavior is calm, cooperative, appropriate ld1 for age. Pain: Denies pain. EENT: No deficits noted. Neuro: No deficits noted. Cardiovascular: No deficits noted. Respiratory: No deficits noted. GI: Abdomen is non-distended, Reports diarrhea. : No signs and/or symptoms were reported regarding the genitourinary system. Derm: No deficits noted. Musculoskeletal: No deficits noted. Historical: - Allergies: 14:41 No Known Allergies; ld1 - PMHx: 14:41 bowel obstruction; Hypertensive disorder; Hypercholesterolemia; ld1 - PSHx: 14:41 abdominal surgery; ld1 - Immunization history:: Adult Immunizations up to date. - Infectious Disease History:: Denies. - Social history:: Smoking status: Patient denies any tobacco usage or history of. Screenin:10 [facility] ED Fall Risk Assessment (Adult) History of falling in the last 3 months, db including since admission No falls in past 3 months (0 pts) Confusion or Disorientation No (0 pts) Intoxicated or Sedated No (0 pts) Impaired Gait No (0 pts) Mobility Assist Device Used No (0 pt) Altered Elimination No (0 pt) Score/Fall Risk Level 0 - 2 = Low Risk Oriented to surroundings, Maintained a safe environment. Abuse screen: Denies threats or abuse. Denies injuries from another. Nutritional screening: No deficits noted. Tuberculosis screening: No symptoms or risk factors identified. Assessment: 16:10 Reassessment: Patient appears in no apparent distress at this time. Patient and/or db family updated on plan of care and expected duration. Pain level reassessed. Patient is alert, oriented x 3, equal unlabored respirations, skin warm/dry/pink. General: Appears in no apparent distress. comfortable, Behavior is calm, cooperative. Neuro: Level of Consciousness is awake, alert, obeys commands, Oriented to person, place, time, situation. Respiratory: Airway is patent Respiratory effort is even, unlabored, Respiratory pattern is regular, symmetrical. GI: Abdomen is flat, non-distended, Reports diarrhea. Vital Signs: 14:41 BP 116 / 82; Pulse 87; Resp 16; Temp 98; Pulse Ox 98% ; ld1 16:11 BP 114 / 81; Pulse 72; Resp 16; Pulse Ox 97% on R/A; db ED Course: 14:30 Patient arrived in ED. im 14:41 Aamir Storm MD is Attending Physician. jr11 14:41 Arm band placed on. ld1 14:42 Triage completed. ld1 14:54 Inserted saline lock: 22 gauge in right forearm, using aseptic technique. Blood ld1 collected. Flushed with 10 mL NS. 15:41 CT Abd/Pelvis - IV Contrast Only In Process Unspecified. EDMS 16:02 Keri Brandt, RN is Primary Nurse. db 16:10 Patient has correct armband on for positive identification. Bed in low position. Call db light in reach. Side rails up X 1. Pulse ox on. NIBP on. Warm blanket given. Pillow given. 16:54 Provided Education on: DISCHARGE AND FOLLOWUP. db 16:54 No provider procedures requiring assistance completed. IV discontinued, intact, db bleeding controlled, No redness/swelling at site. Administered Medications: No medications were administered Medication: 16:10 VIS not applicable for this client. db Outcome: 16:29 Discharge ordered by . jr11 16:54 Discharged to home ambulatory, with family, db 16:54 Condition: stable 16:54 Discharge instructions given to patient, family, Instructed on discharge instructions, follow up and referral plans. Prescriptions given X 1, 16:55 Patient left the ED. db Signatures: Dispatcher [employer] EDMS Radha Blackwell RN RN ld1 Aamir Storm MD MD jr11 Keri Brandt RN RN db Jen Schneider
[2024-09-24 17:31] VITALS: TEMP 98
[2024-09-24 17:37] VITALS: BP 114/81; O2SAT 97
== END 2024-09-24 16:55 | disposition home or self-care (01) ==
LOC: ER 14:26
DX: R19.7 Diarrhea, unspecified (principal)
CPT/HCPCS: 85025; 36415; 83690; 80053; 74177; Q9967; 99284